=== PATIENT | male | born 1930 | race Caucasian/White ===

== ENCOUNTER 2017-11-27 08:34 | Observation (INO) ==
--- NOTE | 2017-11-27 08:53 | Emergency Department Note ---
Disposition Clinical Impression: Delirium due to general medical condition Syncope Qualifiers: Syncope type: unspecified Qualified Code(s): R55 - Syncope and collapse UTI (urinary tract infection) Qualifiers: Urinary tract infection type: site unspecified Hematuria presence: without hematuria Qualified Code(s): N39.0 - Urinary tract infection, site not specified Disposition: Admitted As Inpatient Condition: Good Time of Disposition: 10:15 (Dr Maldonado) Altered Mental Status HPI - General Chief Complaint: ED Altered Mental Status Stated Complaint: POSSIBLE SYNCOPAL EPISODE Time Seen by Provider: 11/27/17 08:46 Source: EMS, other Mode of arrival: EMS Limitations: altered mental status Nursing Notes Reviewed: Yes Vital Signs Reviewed: Yes - History of Present Illness HPI Narrative: 87-year-old rehabilitation patient coming in secondary to syncope episode at the facility. Per EMS staff the patient apparently was seen eating and upon reevaluation appeared to be slumped and minimally responsive to tactile and verbal stimuli. halfway staff initiated chest compressions on the patient and called EMS for help. Upon EMS arrival the patient was awake but confused, had spontaneous circulation and a blood glucose level in the 120s. The patient has a history of Parkinson's disease as well as recent pacemaker placement secondary to complications of atrial fibrillation. The patient is also on Plavix. 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 MD complaint: altered mental status, confusion Onset (ago): Just [employer] Timing confirmed by: caregiver Treatments prior to arrival: other - Related Data Home Medications Medication Instructions Recorded Confirmed Aspirin [Lo-Dose Aspirin EC] 81 mg PO DAILY 09/14/17 11/27/17 Carbidopa/Levodopa ER 50/200 1 each PO BID 09/14/17 11/27/17 [Sinemet ER 50-200 Tab] Tamsulosin [Flomax] 0.4 mg PO HS 09/14/17 11/27/17 Previous Rx's Medication Instructions Recorded Levothyroxine [Synthroid] 75 mcg PO DAILY@0630 #30 tablet 10/24/17 Atorvastatin [Lipitor] 20 mg PO HS tablet 10/28/17 Clopidogrel [Plavix] 75 mg PO DAILY tablet 10/28/17 Pramipexole [Mirapex] 0.125 mg PO DAILY #30 tablet 10/28/17 Allergies Allergy/AdvReac Type Severity Reaction Status Date / Time No Known Allergies Allergy Verified 09/14/17 12:10 Limitations: ROS unobtainable due to patients medical condition Past Medical History - Past Medical History Medical history: Reports: atrial fibrillation, coronary artery disease, hyperlipidemia, TIA, other Psychiatric history: Reports: no psych history - Social History Smoking Status: Never smoker Smokeless Tobacco Status: No Alcohol use: Reports: none Drug use: Reports: none Physical Exam - General Limitations: altered mental status General appearance: lethargic, other - Head Head exam: atraumatic, normocephalic - Eye Eye exam: Present: normal appearance, PERRL, EOMI. Absent: scleral icterus, conjunctival injection, miosis, mydriasis - ENT ENT exam: normal exam, normal oropharynx, mucous membranes moist - Neck Neck exam: Present: normal inspection, full ROM, trachea midline - Chest Chest inspection: Present: normal inspection, symmetric chest wall rise, other ( Contusion on the mid lower sternal area with no appreciated crepitus. Pacemaker in the left chest wall) - Respiratory Respiratory exam: Present: normal lung sounds bilaterally - Cardiovascular Cardiovascular exam: Present: regular rate, normal rhythm, normal heart sounds - Abdominal Exam Abdominal exam: Present: soft, Non-Tender. Absent: tenderness, distention, guarding, rebound, rigidity - Extremities Exam Extremities exam: Present: full ROM, normal capillary refill, pedal edema. Absent: joint swelling - Expanded Neurological Exam Patient oriented to: Present: person (Responds to his name) Speech: Present: fluid speech Motor strength - LUE: 4/5 Motor strength - RUE: 4/5 Motor strength - LLE: 4/5 Motor strength - RLE: 4/5 Coma Scale Eye Opening: To Voice Coma Scale Motor Response: Obeys Commands Coma Scale Verbal Response: Confused Coma Scale Total: 13 - Skin Skin exam: Present: warm, dry, intact, normal color Course - Reevaluation(s) Reevaluation #1: The patient is more responsive to verbal and tactile stimuli. He is able to answer commands with mild confusion. I discussed with the family the results of the CAT scan and the necessity to admit him to the hospital for observation. They are amenable with current disposition. Time: 10:12 Vital Signs Temperature 97.1 F L 11/27/17 08:37 Pulse Rate 65 11/27/17 08:37 Respiratory Rate 16 11/27/17 08:37 Blood Pressure 128/72 11/27/17 08:37 O2 Sat by Pulse Oximetry 95 11/27/17 08:37 Temperature 97.3 F L 11/27/17 10:36 Pulse Rate 60 11/27/17 10:36 Respiratory Rate 16 11/27/17 10:36 Blood Pressure 170/71 11/27/17 10:36 O2 Sat by Pulse Oximetry 97 11/27/17 10:36 Oxygen Delivery Oxygen Delivery Room Air Altered Mental Status - Differential Diagnosis Likely: altered mental status, delirium, dementia, hypoglycemia, hyponatremia, subarachnoid hemorrhage - Medical Records Medical records reviewed: Yes I reviewed the patient's medical records. - Lab Data Lab results reviewed: Yes I reviewed the patient's lab results. Result diagrams: 11/27/17 09:06 11/27/17 09:06 Lab Results 11/27/17 11/27/17 11/27/17 Range/Units 09:06 09:06 09:06 WBC 9.7 (4.3-11.1) K/mcL RBC 3.50 L (4.19-5.50) M/mcL Hgb 10.3 L (12.9-16.9) g/dL Hct 31.7 L (37.5-50.1) % MCV 90.6 (83.0-100.0) fL MCH 29.4 (28.0-33.3) pg MCHC 32.5 (31.6-35.5) g/dL RDW 14.4 (11.5-14.5) % Plt Count 260 (140-400) K/mcL MPV 10.2 (9.4-12.4) fL Immature Gran % 0.5 (0-4) % Seg Neutrophils % 74.9 % Lymphocytes % 15.6 % Monocytes % 7.4 % Eosinophils % 1.3 % Basophils % 0.3 % Neutrophils # 7.3 (1.6-8.9) K/mcL Lymphocytes # 1.5 (0.6-4.6) K/mcL Monocytes # 0.7 (0.0-1.3) K/mcL Eosinophils # 0.1 (0.0-0.6) K/mcL Basophils # 0.0 (0.0-0.2) K/mcL APTT 28.7 (26.0-36.0) Seconds Sodium 135 L (136-145) mEq/L Potassium 4.1 (3.5-5.1) mEq/L Chloride 105 (98-107) mEq/L Carbon Dioxide 27 (23-29) mEq/L BUN 17 (8-23) mg/dL Creatinine 1.02 (0.70-1.30) mg/dL Est GFR ( Amer) > 60 (> 60) Est GFR (Non-Af Amer) > 60 (> 60) BUN/Creatinine Ratio 17 (6-26) Glucose 113 H (70-105) mg/dL Calculated Osmolality 282 (280-300) Lactic Acid (0.5-2.2) mmol/L Calcium 8.5 L (8.6-10.3) mg/dL Total Bilirubin 0.5 (0.3-1.0) mg/dL Direct Bilirubin 0.0 (0.0-0.2) mg/dL Indirect Bilirubin 0.5 (0.0-1.2) mg/dL AST 11 L (13-39) Units/L ALT < 3 L (7-52) Units/L Alkaline Phosphatase 103 (34-104) Units/L Creatine Kinase (30-223) Units/L Troponin I < 0.03 (< 0.04) ng/mL Serum Total Protein 6.6 (6.4-8.9) g/dL Albumin 3.1 L (3.5-5.7) g/dL Globulin 3.5 (2.4-3.5) g/dL Albumin/Globulin Ratio 0.9 L (1.1-2.2) TSH 1.228 (0.340-5.600) mcIU/mL Urine Color (Yellow) Urine Clarity (Clear) Urine pH (5.0-8.0) pH Units Ur Specific Bruner (1.010-1.025) Urine Protein (Neg-Trace) mg/dL Urine Glucose (UA) (Normal) mg/dL Urine Ketones (Negative) mg/dL Urine Blood (Negative) Urine Nitrite (Negative) Urine Bilirubin (Negative) Urine Urobilinogen (Normal) mg/dL Ur Leukocyte Esterase (Negative) Urine Microscopic RBC (0-3) per hpf Urine Microscopic WBC (0-3) per hpf Ur Squamous Epith Cells (None-Few) per lpf Urine Bacteria (None-Few) per hpf Ur Culture Indicated? (NO) 11/27/17 11/27/17 11/27/17 Range/Units 09:06 09:06 10:20 WBC (4.3-11.1) K/mcL RBC (4.19-5.50) M/mcL Hgb (12.9-16.9) g/dL Hct (37.5-50.1) % MCV (83.0-100.0) fL MCH (28.0-33.3) pg MCHC (31.6-35.5) g/dL RDW (11.5-14.5) % Plt Count (140-400) K/mcL MPV (9.4-12.4) fL Immature Gran % (0-4) % Seg Neutrophils % % Lymphocytes % % Monocytes % % Eosinophils % % Basophils % % Neutrophils # (1.6-8.9) K/mcL Lymphocytes # (0.6-4.6) K/mcL Monocytes # (0.0-1.3) K/mcL Eosinophils # (0.0-0.6) K/mcL Basophils # (0.0-0.2) K/mcL APTT (26.0-36.0) Seconds Sodium (136-145) mEq/L Potassium (3.5-5.1) mEq/L Chloride (98-107) mEq/L Carbon Dioxide (23-29) mEq/L BUN (8-23) mg/dL Creatinine (0.70-1.30) mg/dL Est GFR ( Amer) (> 60) Est GFR (Non-Af Amer) (> 60) BUN/Creatinine Ratio (6-26) Glucose (70-105) mg/dL Calculated Osmolality (280-300) Lactic Acid 1.0 (0.5-2.2) mmol/L Calcium (8.6-10.3) mg/dL Total Bilirubin (0.3-1.0) mg/dL Direct Bilirubin (0.0-0.2) mg/dL Indirect Bilirubin (0.0-1.2) mg/dL AST (13-39) Units/L ALT (7-52) Units/L Alkaline Phosphatase (34-104) Units/L Creatine Kinase 32 (30-223) Units/L Troponin I (< 0.04) ng/mL Serum Total Protein (6.4-8.9) g/dL Albumin (3.5-5.7) g/dL Globulin (2.4-3.5) g/dL Albumin/Globulin Ratio (1.1-2.2) TSH (0.340-5.600) mcIU/mL Urine Color Yellow (Yellow) Urine Clarity Cloudy A (Clear) Urine pH 7.5 (5.0-8.0) pH Units Ur Specific Bruner 1.020 (1.010-1.025) Urine Protein 30 H (Neg-Trace) mg/dL Urine Glucose (UA) Normal (Normal) mg/dL Urine Ketones Negative (Negative) mg/dL Urine Blood Trace-intact H (Negative) Urine Nitrite Positive A (Negative) Urine Bilirubin Negative (Negative) Urine Urobilinogen Normal (Normal) mg/dL Ur Leukocyte Esterase Large H (Negative) Urine Microscopic RBC 5-15 H (0-3) per hpf Urine Microscopic WBC TNTC H (0-3) per hpf Ur Squamous Epith Cells None Seen (None-Few) per lpf Urine Bacteria Few (None-Few) per hpf Ur Culture Indicated? YES A (NO) - Radiology Data Radiology results reviewed: Yes I reviewed the patient's radiology results. Chest X-Ray 11/27/17 08:53 IMPRESSION: Bibasilar airspace disease; however, the aeration of the lungs has improved from one month earlier. D/ /27/2017 09:55:57 Quincy Swanson MD / elan Interpreting Provider: Quincy Swanson MD Head CT 11/27/17 08:53 IMPRESSION: Interval development of a subacute infarct within the left occipital lobe, new from the previous exam from 10/21/2017. No acute intracranial hemorrhage. Findings suggesting acute bilateral maxillary and left frontal sinusitis. D/ /27/2017 09:49:19 Darrion Lin MD / elan Interpreting Provider: Darrion Lin MD - EKG Data EKG attestation: Yes I reviewed and interpreted this EKG. EKG results narrative: Atrial paced rhythm Rate: normal Interpretation: nonspecific ST-T wave changes TPA Checklist - LKW: 3-4.5 hrs Add. Warnings/Precautions Patient/family understanding: The patient/family members have been counseled and understood the risk, benefit , and alternatives of treatment.
[2017-11-27 09:13] LABS: Basophils % 0.3 %; Eosinophils # 0.1 K/mcL (0.0-0.6); Eosinophils % 1.3 %; Hematocrit 31.7 % (37.5-50.1); Hemoglobin 10.3 g/dL (12.9-16.9); Immature Granulocytes % 0.5 % (0-4); Lymphocytes # 1.5 K/mcL (0.6-4.6); Lymphocytes % 15.6 %; Mean Corpuscular HGB Conc 32.5 g/dL (31.6-35.5); Mean Corpuscular Hemoglobin 29.4 pg (28.0-33.3); Mean Corpuscular Volume 90.6 fL (83.0-100.0); Mean Platelet Volume 10.2 fL (9.4-12.4); Monocytes # 0.7 K/mcL (0.0-1.3); Monocytes % 7.4 %; Neutrophils # 7.3 K/mcL (1.6-8.9); Platelet Count 260 K/mcL (140-400); Red Cell Distribution Width 14.4 % (11.5-14.5); Segmented Neutrophils % 74.9 %
[2017-11-27 09:46] LABS: Alanine Aminotransferase < 3 Units/L (7-52); Albumin 3.1 g/dL (3.5-5.7); Albumin/Globulin Ratio 0.9 (1.1-2.2); Alkaline Phosphatase 103 Units/L (34-104); Aspartate Amino Transferase 11 Units/L (13-39); BUN/Creatinine Ratio 17 (6-26); Bilirubin,Indirect 0.5 mg/dL (0.0-1.2); Bilirubin,Total 0.5 mg/dL (0.3-1.0); Blood Urea Nitrogen 17 mg/dL (8-23); Calcium 8.5 mg/dL (8.6-10.3); Carbon Dioxide 27 mEq/L (23-29); Chloride 105 mEq/L (98-107); Globulin 3.5 g/dL (2.4-3.5); Glucose 113 mg/dL (70-105); Osmolality,Calculated 282 (280-300); Potassium 4.1 mEq/L (3.5-5.1); Sodium 135 mEq/L (136-145); Thyroid Stimulating Hormone 1.228 mcIU/mL (0.340-5.600); Total Protein 6.6 g/dL (6.4-8.9); Troponin I < 0.03 ng/mL (< 0.04); eGFR For African Americans > 60 (> 60); eGFR For Non-African Americans > 60 (> 60)
[2017-11-27 10:25] LABS: Bilirubin,Urine Negative (Negative); Blood,Urine Trace-intact (Negative); Clarity,Urine Cloudy (Clear); Color,Urine Yellow (Yellow); Glucose,Urine (UA) Normal (Normal); Ketones,Urine Negative (Negative); Leukocyte Esterase,Urine Large (Negative); Nitrite,Urine Positive (Negative); PH,Urine 7.5 pH Units (5.0-8.0); Protein,Urine 30 mg/dL (Neg-Trace); Urobilinogen,Urine Normal (Normal)
[2017-11-27 10:42] LABS: Bacteria,Urine Few per hpf (None-Few); Squamous Epithelial Cell,Urine None Seen per lpf (None-Few); WBC,Urine TNTC per hpf (0-3)
[2017-11-27] MEDS ORDERED: Ondansetron 4 MG/2 ML VIAL IVP PRN (11:08)
[2017-11-27] MEDS ORDERED: Acetaminophen 325 MG TABLET PO PRN (11:08)
[2017-11-27] MEDS ORDERED: Naloxone 0.4 MG/ML INJ IVP PRN (11:08)
[2017-11-27] MEDS ORDERED: *HR* OxyCODONE Immed Rel 5 MG TABLET PO PRN (11:08)
[2017-11-27] MEDS ORDERED: cefTRIAXone 1,000 MG in Water for inj. (sterile) 10 ML IVPB SCH (12:00)
--- NOTE | 2017-11-27 13:54 | Internal Med History&Physical ---
Date of Encounter: 11/27/17 Time of Encounter: 13:20 Assessment and Plan (1) Syncope Current visit: No Status: Acute Etiology not obvious. He will be placed on radiation monitor. Orthostatic vital signs will be checked. Further workup will be done as needed. Qualifiers: Syncope type: unspecified Qualified Code(s): R55 - Syncope and collapse (2) TIA (transient ischemic attack) Current visit: No Status: Acute Continue aspirin and Plavix. Qualifiers: Transient cerebral ischemia type: unspecified Qualified Code(s): G45.9 - Transient cerebral ischemic attack, unspecified (3) Hypothyroidism Current visit: No Status: Acute TSH was normal in emergency room. Continue present dose Synthroid. Qualifiers: Hypothyroidism type: acquired Qualified Code(s): E03.9 - Hypothyroidism, unspecified (4) Parkinson disease Current visit: No Status: Chronic Continue Sinemet and Mirapex (5) Atrial fibrillation Current visit: No Status: Acute Oral anticoagulation has been held because of hematuria. Continue aspirin and Plavix. Qualifiers: Atrial fibrillation type: paroxysmal Qualified Code(s): I48.0 - Paroxysmal atrial fibrillation (6) UTI (urinary tract infection) Current visit: Yes Status: Acute Rocephin was given in emergency room. We will continue this with lactobacillus. Qualifiers: Urinary tract infection type: site unspecified Hematuria presence: without hematuria Qualified Code(s): N39.0 - Urinary tract infection, site not specified (7) Anemia Current visit: Yes Status: Chronic We will order anemia testing in a.m. Qualifiers: Anemia type: unspecified type Qualified Code(s): D64.9 - Anemia, unspecified Internal Medicine - H&P: HPI Chief complaint: Syncope Admitted From: Emergency Dept Plans for Post Hospital Care: Transfer Nursing Home Facility History of present illness: Mr. Cloud is a 87 year old male who was brought to emergency room after he had a syncopal episode while sitting at breakfast table at a local SNF. There was no seizure activity reported. He regained consciousness after a short time and was transported to emergency room. Evaluation included CT scan of head which showed subacute left occipital infarct new since October 2017 CT. He had anemia and evidence of UTI. He was admitted to [facility] floor for ongoing care needs. He had a dual-chamber pacemaker placed October 2017 at [facility] for symptomatically bradycardia. He has had syncope/collapse at the SNF since that [facility] stay while participating in therapy walking down the [place]. He has chronic atrial fibrillation. He has known ASHD with a single stent placed and 2002. There is no history of hypertension, NM, DVT or pulmonary embolus. He is not on OAC at this time because of recent hematuria. He is on aspirin and Plavix. Past Med Surg Social Fam HX - Past Medical History Medical history: atrial fibrillation, coronary artery disease, hyperlipidemia, TIA, other Psychiatric history: no psych history - Social History Smoking Status: Never smoker Smokeless Tobacco Status: No Alcohol use: none Drug use: none Internal Medicine - H&P: Meds Aspirin [Lo-Dose Aspirin EC] 81 mg PO DAILY 09/14/17 [History] Carbidopa/Levodopa ER 50/200 [Sinemet ER 50-200 Tab] 1 each PO BID 09/14/17 [ History] Tamsulosin [Flomax] 0.4 mg PO HS 09/14/17 [History] Levothyroxine [Synthroid] 75 mcg PO DAILY@0630 #30 tablet 10/24/17 [Rx] Atorvastatin [Lipitor] 20 mg PO HS tablet 10/28/17 [Rx] Clopidogrel [Plavix] 75 mg PO DAILY tablet 10/28/17 [Rx] Pramipexole [Mirapex] 0.125 mg PO DAILY #30 tablet 10/28/17 [Rx] 3 Allergy/AdvReac Type Severity Reaction Status Date / Time No Known Allergies Allergy Verified 09/14/17 12:10 All Systems PM: A 10-system review of systems was performed and is negative for pertinent findings except as documented above in the HPI. Review of systems: Gen.: His weight has decreased approximately 20 pounds in the past 3 months. His daughter feels this is secondary to loss of edema fluid. Cardiovascular: As per history of present illness Respiratory: He is a lifelong nonsmoker and has no known chronic lung disease GI: Denies disorders of his liver gallbladder or exocrine pancreas : He has BPH. He denies other kidney or bladder disorders except for recent hematuria. He has not had a UTI in many years. Neurologic: He had TIA August 2017 with some speech disturbance which has returned to baseline. He was placed on antiplatelet agents. He was diagnosed with Parkinson's disease approximately 2012. He denies large distribution strokes or known seizures. 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 Endocrine: He denies diabetes but has hypothyroidism and hyperlipidemia Hematology/oncology: He has chronic anemia but was unaware of this. He denies internal malignancies other blood disorders Psychiatric: He has expressed feelings of depression and stated he did not want medication for this. He mental health diagnoses [place] skeletal: He has no significant arthritis scatter other bone joint or muscle disorders. - Constitutional Vitals: Temp Pulse Resp BP Pulse Ox 96.2 F L 62 20 190/79 100 11/27/17 11:21 11/27/17 11:21 11/27/17 11:21 11/27/17 11:21 11/27/17 11:21 Exam: Gen.: He is a well-developed well-nourished male lying quietly in bed who appears in no severe distress at present time HEENT: Head is atraumatic and normocephalic. Eyes: Has a prosthetic left eye. The right eye shows no scleral icterus. Mouth: Mucosa is moist. Neck: Supple and nontender. There is no thyromegaly or adenopathy noted. Heart: Regular without murmurs gallops or ectopics Lungs: No wheezes or crackles are heard. Abdomen: Soft and nontender. No masses or guarding are noted. Extremities: There is no cyanosis edema or clubbing noted. Dorsalis pedis and posterior tibial pulses are trace palpable bilaterally. Neurologic: Mental status: He is talkative and fair to good historian. Cranial nerves: Smile is symmetric. Forehead wrinkles bilaterally. Tongue protrudes midline. EOMI. (Right eye). There is some right visual field deficit present. Motor: There is no pronator drift. Cerebellar: Finger to nose is intact bilaterally. Skin: Warm and dry Internal Med - H&P Results - Labs CBC & Chem 7: 11/27/17 09:06 11/27/17 09:06
[2017-11-27] MEDS: cefTRIAXone 1,000 MG in Water for inj. (sterile) 10 ML IVPB SCH (15:08)
[2017-11-27] MEDS: Lactobacillus 1 EACH CAP.SPRINK PO SCH (20:04)
[2017-11-27] MEDS: Carbidopa/Levodopa ER 50/200 TABLET PO SCH (20:04)
[2017-11-28 05:58] LABS: Basophils % 0.5 %; Eosinophils # 0.1 K/mcL (0.0-0.6); Eosinophils % 1.7 %; Hematocrit 29.9 % (37.5-50.1); Hemoglobin 9.7 g/dL (12.9-16.9); Immature Granulocytes % 0.7 % (0-4); Lymphocytes # 1.7 K/mcL (0.6-4.6); Lymphocytes % 20.1 %; Mean Corpuscular HGB Conc 32.4 g/dL (31.6-35.5); Mean Corpuscular Hemoglobin 29.3 pg (28.0-33.3); Mean Corpuscular Volume 90.3 fL (83.0-100.0); Mean Platelet Volume 10.4 fL (9.4-12.4); Monocytes # 0.8 K/mcL (0.0-1.3); Monocytes % 9.3 %; Neutrophils # 5.6 K/mcL (1.6-8.9); Platelet Count 263 K/mcL (140-400); Red Blood Count 3.31 M/mcL (4.19-5.50); Red Cell Distribution Width 14.6 % (11.5-14.5); Segmented Neutrophils % 67.7 %
[2017-11-28 06:18] LABS: BUN/Creatinine Ratio 18 (6-26); Blood Urea Nitrogen 19 mg/dL (8-23); Calcium 8.5 mg/dL (8.6-10.3); Carbon Dioxide 26 mEq/L (23-29); Chloride 105 mEq/L (98-107); Glucose 99 mg/dL (70-105); Osmolality,Calculated 288 (280-300); Potassium 4.2 mEq/L (3.5-5.1); Sodium 138 mEq/L (136-145); eGFR For African Americans > 60 (> 60); eGFR For Non-African Americans > 60 (> 60)
[2017-11-28] MEDS: Aspirin Enteric Coated 81 MG Tablet PO SCH (08:20)
[2017-11-28] MEDS: Lactobacillus 1 EACH CAP.SPRINK PO SCH ×2 (08:20→21:36)
[2017-11-28] MEDS: Carbidopa/Levodopa ER 50/200 TABLET PO SCH ×2 (08:21→21:36)
[2017-11-28] MEDS: Finasteride 5 MG TABLET PO SCH (08:21)
[2017-11-28 08:56] LABS: % Iron Saturation 17 % (20-55); Ferritin 66 ng/ml (20-250); Iron 50 mcg/dL (65-175); Transferrin 205 mg/dL (203-362)
[2017-11-28 09:21] LABS: Folate 14.8 ng/mL (3.0-16.0)
--- NOTE | 2017-11-28 10:15 | Internal Med Progress Note ---
Date of Encounter: 11/28/17 Time of Encounter: 10:00 - Assessment and plan (1) Syncope Current Visit: No Status: Acute Assessment and plan: November 28. Likely due to autonomic insufficiency. Will increase Mirapex, use thigh-high DAYANNA hose, and start Florinef. Qualifiers: Syncope type: unspecified Qualified Code(s): R55 - Syncope and collapse (2) TIA (transient ischemic attack) Current Visit: No Status: Acute Assessment and plan: November 28. Continue Plavix and aspirin Qualifiers: Transient cerebral ischemia type: unspecified Qualified Code(s): G45.9 - Transient cerebral ischemic attack, unspecified (3) Hypothyroidism Current Visit: No Status: Acute Assessment and plan: November 28. Continue Synthroid Qualifiers: Hypothyroidism type: acquired Qualified Code(s): E03.9 - Hypothyroidism, unspecified (4) Parkinson disease Current Visit: No Status: Chronic Assessment and plan: November 28. Continue Sinemet. Will increase Mirapex. (5) Atrial fibrillation Current Visit: No Status: Acute Assessment and plan: November 28. Continue aspirin and Plavix. Possibly restart oral anticoagulation in the future Qualifiers: Atrial fibrillation type: paroxysmal Qualified Code(s): I48.0 - Paroxysmal atrial fibrillation (6) UTI (urinary tract infection) Current Visit: Yes Status: Acute Assessment and plan: November 28. Continue Rocephin and lactobacillus. Qualifiers: Urinary tract infection type: site unspecified Hematuria presence: without hematuria Qualified Code(s): N39.0 - Urinary tract infection, site not specified (7) Anemia Current Visit: Yes Status: Chronic Assessment and plan: November 28. Anemia testing showed no factor deficiency. Suspect due to aspirin and Plavix use. Qualifiers: Anemia type: unspecified type Qualified Code(s): D64.9 - Anemia, unspecified - Subjective Interval history: November 28. He has no new complaints. He had near syncopal episode while sitting in a chair today. - Constitutional Vitals: Temp Pulse Resp BP Pulse Ox 98.2 F 62 16 95/57 100 11/28/17 08:12 11/28/17 08:12 11/28/17 08:12 11/28/17 08:12 11/28/17 08:12 Exam: He is lying in bed resting comfortable. His affect is bright and cheerful. I reviewed his medications and lab results and orthostatic vital signs. I discussed with family at some length his condition and prognosis. Internal Medicine: Result - Labs CBC & Chem 7: 11/28/17 05:20 11/28/17 05:20 Labs: Short CBC 11/28/17 Range/Units 05:20 WBC 8.3 (4.3-11.1) K/mcL Hgb 9.7 L (12.9-16.9) g/dL Hct 29.9 L (37.5-50.1) % Plt Count 263 (140-400) K/mcL Neutrophils # 5.6 (1.6-8.9) K/mcL BMP 11/28/17 05:20 Sodium 138 Potassium 4.2 Chloride 105 Carbon Dioxide 26 BUN 19 Creatinine 1.06 Glucose 99 Calcium 8.5 L Consult Discharge Plan - Plan Referrals: Tate Go DO [Primary Care Provider] - 1 week
[2017-11-28] MEDS ORDERED: cefTRIAXone 1,000 MG in Water for inj. (sterile) 10 ML IVPB SCH (12:00)
[2017-11-28] MEDS: cefTRIAXone 1,000 MG in Water for inj. (sterile) 10 ML IVPB SCH (14:41)
[2017-11-28] MEDS: 0.45 % Sodium Chloride w/KCl 20 MEQ/1,000 ML MLS IVC SCH (19:00)
--- NOTE | 2017-11-28 19:58 | Electrocardiograph Report ---
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
[2017-11-29] MEDS: 0.45 % Sodium Chloride w/KCl 20 MEQ/1,000 ML MLS IVC SCH ×2 (07:36→19:58)
[2017-11-29] MEDS: Carbidopa/Levodopa ER 50/200 TABLET PO SCH ×2 (08:56→19:59)
[2017-11-29] MEDS: Finasteride 5 MG TABLET PO SCH (08:56)
[2017-11-29] MEDS: Lactobacillus 1 EACH CAP.SPRINK PO SCH ×2 (08:56→19:59)
[2017-11-29] MEDS: Aspirin Enteric Coated 81 MG Tablet PO SCH (08:56)
--- NOTE | 2017-11-29 11:39 | Internal Med Progress Note ---
Date of Encounter: 11/29/17 Time of Encounter: 11:30 - Assessment and plan (1) Syncope Current Visit: No Status: Acute Assessment and plan: November 29. Likely due to autonomic insufficiency. Will continue higher dose Mirapex, use thigh-high DAYANNA hose, and continue Florinef. Qualifiers: Syncope type: unspecified Qualified Code(s): R55 - Syncope and collapse (2) TIA (transient ischemic attack) Current Visit: No Status: Acute Assessment and plan: November 29. Continue Plavix and aspirin Qualifiers: Transient cerebral ischemia type: unspecified Qualified Code(s): G45.9 - Transient cerebral ischemic attack, unspecified (3) Hypothyroidism Current Visit: No Status: Acute Assessment and plan: November 29. Continue Synthroid Qualifiers: Hypothyroidism type: acquired Qualified Code(s): E03.9 - Hypothyroidism, unspecified (4) Parkinson disease Current Visit: No Status: Chronic Assessment and plan: November 29. Continue Sinemet and Mirapex. (5) Atrial fibrillation Current Visit: No Status: Acute Assessment and plan: November 29. Continue aspirin and Plavix. Possibly restart oral anticoagulation in the future. Qualifiers: Atrial fibrillation type: paroxysmal Qualified Code(s): I48.0 - Paroxysmal atrial fibrillation (6) UTI (urinary tract infection) Current Visit: Yes Status: Acute Assessment and plan: November 29. Continue Rocephin and lactobacillus. Qualifiers: Urinary tract infection type: site unspecified Hematuria presence: without hematuria Qualified Code(s): N39.0 - Urinary tract infection, site not specified (7) Anemia Current Visit: Yes Status: Chronic Assessment and plan: November 29. Anemia testing showed no factor deficiency. Suspect due to aspirin and Plavix. Qualifiers: Anemia type: unspecified type Qualified Code(s): D64.9 - Anemia, unspecified - Subjective Interval history: November 28. He has no new complaints. He had near syncopal episode while sitting in a chair today. November 29. He has no new complaints. He has had no more syncope or near syncopal episodes. - Constitutional Vitals: Temp Pulse Resp BP Pulse Ox 98.3 F 61 18 162/70 95 11/29/17 04:43 11/29/17 04:43 11/29/17 04:43 11/29/17 04:43 11/29/17 04:43 Exam: He is resting comfortably in bed and appears in no acute distress. His affect is cheerful. I reviewed his medications and lab results. Internal Medicine: Result - Labs CBC & Chem 7: 11/28/17 05:20 11/28/17 05:20 Consult Discharge Plan - Plan Referrals: Tate Go DO [Primary Care Provider] - 1 week
[2017-11-29] MEDS: cefTRIAXone 1,000 MG in Water for inj. (sterile) 10 ML IVPB SCH (15:55)
[2017-11-30 06:48] VITALS: BP 186/74
[2017-11-30] MEDS: Lactobacillus 1 EACH CAP.SPRINK PO SCH (08:30)
[2017-11-30] MEDS: Aspirin Enteric Coated 81 MG Tablet PO SCH (08:30)
[2017-11-30] MEDS: 0.45 % Sodium Chloride w/KCl 20 MEQ/1,000 ML MLS IVC SCH (08:31)
[2017-11-30] MEDS: Carbidopa/Levodopa ER 50/200 TABLET PO SCH (08:31)
[2017-11-30] MEDS: Finasteride 5 MG TABLET PO SCH (08:31)
--- NOTE | 2017-11-30 11:36 | Internal Med Progress Note ---
Date of Encounter: 11/30/17 Time of Encounter: 10:25 - Assessment and plan (1) Syncope Current Visit: No Status: Acute Assessment and plan: November 29. Likely due to autonomic insufficiency. Will continue higher dose Mirapex, use thigh-high DAYANNA hose, and continue Florinef. November 30. Continue present regimen. Recheck orthostatic vital signs in a.m. Qualifiers: Syncope type: unspecified Qualified Code(s): R55 - Syncope and collapse (2) TIA (transient ischemic attack) Current Visit: No Status: Acute Assessment and plan: November 29. Continue Plavix and aspirin Qualifiers: Transient cerebral ischemia type: unspecified Qualified Code(s): G45.9 - Transient cerebral ischemic attack, unspecified (3) Hypothyroidism Current Visit: No Status: Acute Assessment and plan: November 29. Continue Synthroid Qualifiers: Hypothyroidism type: acquired Qualified Code(s): E03.9 - Hypothyroidism, unspecified (4) Parkinson disease Current Visit: No Status: Chronic Assessment and plan: November 29. Continue Sinemet and Mirapex. (5) Atrial fibrillation Current Visit: No Status: Acute Assessment and plan: November 29. Continue aspirin and Plavix. Possibly restart oral anticoagulation in the future. Qualifiers: Atrial fibrillation type: paroxysmal Qualified Code(s): I48.0 - Paroxysmal atrial fibrillation (6) UTI (urinary tract infection) Current Visit: Yes Status: Acute Assessment and plan: November 29. Continue Rocephin and lactobacillus. Qualifiers: Urinary tract infection type: site unspecified Hematuria presence: without hematuria Qualified Code(s): N39.0 - Urinary tract infection, site not specified (7) Anemia Current Visit: Yes Status: Chronic Assessment and plan: November 29. Anemia testing showed no factor deficiency. Suspect due to aspirin and Plavix. November 30. Hemoglobin decreased yesterday. We will recheck in a.m. Will start ferrous sulfate and vitamin C orally. Qualifiers: Anemia type: unspecified type Qualified Code(s): D64.9 - Anemia, unspecified - Subjective Interval history: November 28. He has no new complaints. He had near syncopal episode while sitting in a chair today. November 29. He has no new complaints. He has had no more syncope or near syncopal episodes. November 30. He has no new complaints and feels better. - Constitutional Vitals: Temp Pulse Resp BP Pulse Ox 97.3 F L 59 20 186/74 95 11/30/17 06:46 11/30/17 06:46 11/30/17 06:46 11/30/17 06:46 11/30/17 06:46 Exam: He is resting comfortably in bed and appears in no acute distress. His affect is bright and cheerful. I reviewed his medications and lab results. Internal Medicine: Result - Labs CBC & Chem 7: 11/28/17 05:20 11/28/17 05:20 Consult Discharge Plan - Plan Referrals: Tate Go DO [Primary Care Provider] - 1 week
[2017-11-30] MEDS: cefTRIAXone 1,000 MG in Water for inj. (sterile) 10 ML IVPB SCH (15:51)
--- NOTE | 2017-11-30 16:45 | Discharge Summary ---
Orders not resulted at time of discharge: Pending orders 12/01/17 04:00 Complete Blood Count [HEME] AM 0400 Date of Encounter: 11/30/17 Time of Encounter: 16:30 - Discharge Diagnosis (1) Syncope Priority: Primary Status: Acute Qualifiers: Syncope type: unspecified Qualified Code(s): R55 - Syncope and collapse (2) TIA (transient ischemic attack) Priority: Secondary Status: Acute Qualifiers: Transient cerebral ischemia type: unspecified Qualified Code(s): G45.9 - Transient cerebral ischemic attack, unspecified (3) Hypothyroidism Priority: Secondary Status: Acute Qualifiers: Hypothyroidism type: acquired Qualified Code(s): E03.9 - Hypothyroidism, unspecified (4) Parkinson disease Priority: Secondary Status: Chronic (5) Atrial fibrillation Priority: Secondary Status: Acute Qualifiers: Atrial fibrillation type: paroxysmal Qualified Code(s): I48.0 - Paroxysmal atrial fibrillation (6) UTI (urinary tract infection) Priority: Secondary Status: Acute Qualifiers: Urinary tract infection type: site unspecified Hematuria presence: without hematuria Qualified Code(s): N39.0 - Urinary tract infection, site not specified (7) Anemia Priority: Secondary Status: Chronic Qualifiers: Anemia type: unspecified type Qualified Code(s): D64.9 - Anemia, unspecified Hospital course: Mr. Cloud is a 87 year old male who was brought to emergency room after he had a syncopal episode while sitting at breakfast table at a local SNF. There was no seizure activity reported. He regained consciousness after a short time and was transported to emergency room. Evaluation included CT scan of head which showed subacute left occipital infarct new since October 2017 CT. He had anemia and evidence of UTI. He was admitted to [facility] for ongoing care needs. Initial orders were written by the emergency room physician. I saw him on November 27 and performed a history and physical. Orthostatic vital signs showed 50 mm blood pressure drop from lying to standing. I felt he likely had autonomic dysfunction. He was started on Florinef and ordered thigh-high DAYANNA hose. Mirapex dose was increased. He had no further syncopal or near syncopal episodes. He will remain on this regimen at discharge. He had urinary retention requiring Ness catheter insertion. Ness will be discontinued on December 01. No visible hematuria was present in the collection bag at time of discharge. He was given higher dose Flomax and started on Proscar for BPH. Rocephin was started empirically in emergency room for possible UTI. Urine culture report showed Proteus mirabilis and another gram-negative mary anne. He remained afebrile during his hospital stay. He will continue with antibiotics for one additional day after discharge. Anemia testing showed iron 50, transferrin saturation 70%, transferrin 205, ferritin 66, B12 713, and folate 14.8. He will be given a trial of ferrous sulfate with vitamin C. On November 30 word was received from insurance that he was approved to returned to [facility] for rehabilitation therapy. He will follow with Dr. Villatoro. - Time Spent with Patient Total time spent providing and/or coordinating discharge services: - Discharge Medications Prescriptions: Cefuroxime PO [Ceftin] 500 mg PO Q12HR 1 Days tablet Lactobacillus [Culturelle] 1 each PO BID 1 Days cap.sprink Home Medications: Aspirin [Lo-Dose Aspirin EC] 81 mg PO DAILY 09/14/17 [History] Carbidopa/Levodopa ER 50/200 [Sinemet ER 50-200 Tab] 1 each PO BID 09/14/17 [ History] Levothyroxine [Synthroid] 75 mcg PO DAILY@0630 #30 tablet 10/24/17 [Rx] Atorvastatin [Lipitor] 20 mg PO HS tablet 10/28/17 [Rx] Clopidogrel [Plavix] 75 mg PO DAILY tablet 10/28/17 [Rx] Ascorbic Acid [Vitamin C] 500 mg PO 0630 tablet 11/30/17 [Rx] Cefuroxime PO [Ceftin] 500 mg PO Q12HR 1 Days tablet 11/30/17 [Rx] Ferrous Sulfate 325 mg PO 0630 tablet 11/30/17 [Rx] Finasteride [Proscar] 5 mg PO DAILY tablet 11/30/17 [Rx] Fludrocortisone Acetate [Florinef] 0.1 mg PO DAILY tablet 11/30/17 [Rx] Lactobacillus [Culturelle] 1 each PO BID 1 Days cap.sprink 11/30/17 [Rx] Pramipexole [Mirapex] 0.25 mg PO DAILY 365 Days tablet 11/30/17 [Rx] Tamsulosin [Flomax] 0.8 mg PO HS #0 11/30/17 [Rx] Allergies/Adverse Reactions: 3 Allergy/AdvReac Type Severity Reaction Status Date / Time No Known Allergies Allergy Verified 09/14/17 12:10 Date of admission: 11/27/17 10:59 Primary care physician: Darell Villatoro M.D. Consults: 11/27/17 20:27 Consult to Professional P[employer] [CONS] Routine Reason for SW Consult: D/C planning -pt was at [facility] out of days 11/24/17 - got 3 free days putting 11/27/17 as date of D/C - pt needs services/placement 11/28/17 10:33 Consult to Occupational Therapy [CONS] Routine Comment: Evaluate, develop and implement POC Reason for Consult: weakness,syncope Does patient have active BEDREST order?: No Is patient medically & hemodynamically stable?: Yes Patient assessed for mobility or mobilized this visit?: Yes Consult to Physical Therapy [CONS] Routine Comment: Evaluate, develop and implement POC Reason for Consult: weakness Does patient have active BEDREST order?: No Is patient medically & hemodynamically stable?: Yes Patient assessed for mobility or mobilized this visit?: Yes - Constitutional Vitals: Temp Pulse Resp BP Pulse Ox 97.3 F L 59 20 186/74 95 11/30/17 06:46 11/30/17 06:46 11/30/17 06:46 11/30/17 06:46 11/30/17 06:46 - Patient Status Disposition: Transfer SNF Condition: Good Functional capacity at discharge: uses cane/walker Overall status at discharge: patient is progressing back to baseline - Discharge Instructions - Diet and Activity Activity: as per physical therapy Diet: advance to your usual diet
--- NOTE | 2017-11-30 16:54 | Physician Discharge Referral ---
ExtendedCare Referral Info Transfer To: [facility] Provider in Charge: Joel Provider in Charge after Transfer: PCP Lana) - Diagnosis (1) Syncope Priority: Primary Status: Acute (2) TIA (transient ischemic attack) Priority: Secondary Status: Acute (3) Hypothyroidism Priority: Secondary Status: Acute (4) Parkinson disease Priority: Secondary Status: Chronic (5) Atrial fibrillation Priority: Secondary Status: Acute (6) UTI (urinary tract infection) Priority: Secondary Status: Acute (7) Anemia Priority: Secondary Status: Chronic Prognosis: Fair Aware of Diagnosis: Patient, Family Aware of Prognosis: Patient, Family - Transfer Medications Prescriptions: Cefuroxime PO [Ceftin] 500 mg PO Q12HR 1 Days tablet Lactobacillus [Culturelle] 1 each PO BID 1 Days cap.sprink Home Medications: Aspirin [Lo-Dose Aspirin EC] 81 mg PO DAILY 09/14/17 [History] Carbidopa/Levodopa ER 50/200 [Sinemet ER 50-200 Tab] 1 each PO BID 09/14/17 [ History] Levothyroxine [Synthroid] 75 mcg PO DAILY@0630 #30 tablet 10/24/17 [Rx] Atorvastatin [Lipitor] 20 mg PO HS tablet 10/28/17 [Rx] Clopidogrel [Plavix] 75 mg PO DAILY tablet 10/28/17 [Rx] Ascorbic Acid [Vitamin C] 500 mg PO 0630 tablet 11/30/17 [Rx] Cefuroxime PO [Ceftin] 500 mg PO Q12HR 1 Days tablet 11/30/17 [Rx] Ferrous Sulfate 325 mg PO 0630 tablet 11/30/17 [Rx] Finasteride [Proscar] 5 mg PO DAILY tablet 11/30/17 [Rx] Fludrocortisone Acetate [Florinef] 0.1 mg PO DAILY tablet 11/30/17 [Rx] Lactobacillus [Culturelle] 1 each PO BID 1 Days cap.sprink 11/30/17 [Rx] Pramipexole [Mirapex] 0.25 mg PO DAILY 365 Days tablet 11/30/17 [Rx] Tamsulosin [Flomax] 0.8 mg PO HS #0 11/30/17 [Rx] Allergies/Adverse Reactions: 3 Allergy/AdvReac Type Severity Reaction Status Date / Time No Known Allergies Allergy Verified 09/14/17 12:10 - Respiratory Orders Smoking Cessation: Smoking cessation has been advised. For more information, call the [place] Tobacco Quit Line at 5-628-LSCL-NOW. - Lab Orders Lab Orders: Other (include drug levels w/frequency) (CBC with differential, BMP in 1 week) - Rehabiliation Orders Rehab Potential: Fair Rehab Orders: Evaluation for Physical Therapy, Evaluation for Occupational Therapy - Treatments List/Other: Remove Ness catheter 12/01/2017. - Diet Orders Regular CERTIFICATION: I certify that the transfer of the above named patient to an Extended Care Facility is necessary for the continuing treatment of the diagnosis listed. The above information is true and accurate reflection of patient's current condition. Confidential - Redisclosure prohibited without a patient's written consent.
[2017-12-01] MEDS ORDERED: Ascorbic Acid 500 MG TABLET PO SCH (06:30)
== END 2017-11-30 18:11 ==
LOC: INPPIK 08:34 → EMEROOPIK 08:34 → INPPIK 10:54
PROVIDERS: ADMIT Internal Medicine; ATTEND Internal Medicine

== ENCOUNTER 2017-12-25 12:16 | Observation (INO) ==
--- NOTE | 2017-12-25 12:25 | Emergency Department Note ---
Disposition Clinical Impression: Syncope and collapse Disposition: Admitted As Inpatient Condition: Fair Time of Disposition: 14:00 (Dr Maldonado) Altered Mental Status HPI - General Chief Complaint: ED General Medical Stated Complaint: syncopal episode earlier today Time Seen by Provider: 12/25/17 12:23 Source: EMS Mode of arrival: EMS Limitations: altered mental status Nursing Notes Reviewed: Yes Vital Signs Reviewed: Yes - History of Present Illness HPI Narrative: Patient had a syncopal episode around 9:30 AM today. He has persistent confusion with weakness on the left upper extremity with some slurring of his speech according to EMS and family. The patient has been seen in the past for similar complaints. 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 MD complaint: confusion Timing confirmed by: family member Pain Severity: none Consistency of Symptoms: unknown Context: history of similar presentation Associated symptoms: Reports: syncope. Denies: chest pain, nausea/vomiting, weakness - Related Data Home Medications Medication Instructions Recorded Confirmed Aspirin [Lo-Dose Aspirin EC] 81 mg PO DAILY 09/14/17 12/25/17 Carbidopa/Levodopa ER 50/200 1 each PO BID 09/14/17 12/25/17 [Sinemet ER 50-200 Tab] Acetaminophen [Non-Aspirin] 650 mg PO PRN PRN 12/25/17 12/25/17 Ferrous Sulfate 325 mg PO DAILY 12/25/17 12/25/17 Rivaroxaban [Xarelto] 15 mg PO DAILY 12/25/17 12/25/17 Previous Rx's Medication Instructions Recorded Levothyroxine [Synthroid] 75 mcg PO DAILY@0630 #30 tablet 10/24/17 Atorvastatin [Lipitor] 20 mg PO HS tablet 10/28/17 Clopidogrel [Plavix] 75 mg PO DAILY tablet 10/28/17 Ascorbic Acid [Vitamin C] 500 mg PO 0630 tablet 11/30/17 Finasteride [Proscar] 5 mg PO DAILY tablet 11/30/17 Fludrocortisone Acetate [Florinef] 0.1 mg PO DAILY tablet 11/30/17 Pramipexole [Mirapex] 0.25 mg PO DAILY 365 Days tablet 11/30/17 Tamsulosin [Flomax] 0.8 mg PO HS #0 11/30/17 Lactobacillus [Culturelle] 1 each PO BID #10 cap.sprink 12/14/17 Allergies Allergy/AdvReac Type Severity Reaction Status Date / Time No Known Allergies Allergy Verified 12/14/17 13:07 Limitations: ROS unobtainable due to patients medical condition Past Medical History - Past Medical History Medical history: Reports: atrial fibrillation, hyperlipidemia, other, TIA, coronary artery disease Psychiatric history: Reports: no psych history - Social History Smoking Status: Never smoker Smokeless Tobacco Status: No Alcohol use: Reports: none Drug use: Reports: none Physical Exam - General Limitations: altered mental status General appearance: alert, in no apparent distress - Head Head exam: atraumatic, normocephalic, normal inspection - Eye Eye exam: Present: PERRL (Right eye). Absent: scleral icterus, conjunctival injection, nystagmus, miosis, mydriasis, periorbital swelling - ENT ENT exam: normal exam, normal oropharynx, mucous membranes moist - Neck Neck exam: Present: normal inspection, full ROM, trachea midline - Chest Chest inspection: Present: normal inspection, symmetric chest wall rise - Respiratory Respiratory exam: Present: normal lung sounds bilaterally - Cardiovascular Cardiovascular exam: Present: regular rate, normal rhythm, normal heart sounds - Abdominal Exam Abdominal exam: Present: soft, Non-Tender. Absent: tenderness, distention, guarding, rebound, rigidity - Extremities Exam Extremities exam: Present: normal inspection, full ROM. Absent: tenderness, pedal edema - Back Exam Back exam: Present: normal inspection, full ROM. Absent: tenderness - Expanded Neurological Exam Patient oriented to: Present: person Speech: Present: fluid speech Motor strength - LUE: 5/5 Motor strength - RUE: 5/5 Motor strength - LLE: 5/5 Motor strength - RLE: 5/5 Sensory exam upper extremity: light touch: Normal Sensory exam lower extremity: light touch: Normal Coma Scale Eye Opening: Spontaneous Coma Scale Motor Response: Obeys Commands Coma Scale Verbal Response: Confused Coma Scale Total: 14 - Skin Skin exam: Present: warm, dry, intact, normal color Course Vital Signs Temperature 97.0 F L 12/25/17 12:19 Pulse Rate 68 12/25/17 12:19 Respiratory Rate 16 12/25/17 12:19 Blood Pressure 183/79 12/25/17 12:19 O2 Sat by Pulse Oximetry 98 12/25/17 12:19 Temperature 97.0 F L 12/25/17 13:27 Pulse Rate 60 12/25/17 15:00 Respiratory Rate 16 12/25/17 15:00 Blood Pressure 190/77 12/25/17 15:00 O2 Sat by Pulse Oximetry 99 12/25/17 15:00 Oxygen Delivery Oxygen Delivery Room Air Altered Mental Status - MDM Narrative Medical decision making narrative: Stable hemodynamically in the ED. The patient's blood pressure was stable throughout the ED course. She is mentation gradually improved on reevaluation. I did speak to the patient's PCP at the assisted living and would like to admit the patient for observation secondary to his delirium. Throughout the ED course he gradually improve with no clear signs for any acute focal neurological deficits. Patient does have a history of similar complaints the past and has slow mentation improvement after syncopal episodes. - Differential Diagnosis Likely: altered mental status, delirium, dementia, hypoglycemia, hyponatremia, psychiatric disease, subarachnoid hemorrhage - Medical Records Medical records reviewed: Yes I reviewed the patient's medical records. - Lab Data Lab results reviewed: Yes I reviewed the patient's lab results. Result diagrams: 12/25/17 12:59 12/25/17 12:59 Lab Results 12/25/17 12/25/17 12/25/17 Range/Units 12:59 12:59 12:59 WBC 6.1 (4.3-11.1) K/mcL RBC 3.57 L (4.19-5.50) M/mcL Hgb 10.5 L (12.9-16.9) g/dL Hct 32.3 L (37.5-50.1) % MCV 90.5 (83.0-100.0) fL MCH 29.4 (28.0-33.3) pg MCHC 32.5 (31.6-35.5) g/dL RDW 14.8 H (11.5-14.5) % Plt Count 261 (140-400) K/mcL MPV 9.3 L (9.4-12.4) fL Immature Gran % 0.7 (0-4) % Seg Neutrophils % 59.0 % Lymphocytes % 26.4 % Monocytes % 9.0 % Eosinophils % 4.4 % Basophils % 0.5 % Neutrophils # 3.6 (1.6-8.9) K/mcL Lymphocytes # 1.6 (0.6-4.6) K/mcL Monocytes # 0.6 (0.0-1.3) K/mcL Eosinophils # 0.3 (0.0-0.6) K/mcL Basophils # 0.0 (0.0-0.2) K/mcL PT 19.9 H (9.4-12.1) Seconds INR 1.8 APTT 42.2 H (26.0-36.0) Seconds Sodium 140 (136-145) mEq/L Potassium 3.7 (3.5-5.1) mEq/L Chloride 104 (98-107) mEq/L Carbon Dioxide 31 H (23-29) mEq/L BUN 17 (8-23) mg/dL Creatinine 0.87 (0.70-1.30) mg/dL Est GFR ( Amer) > 60 (> 60) Est GFR (Non-Af Amer) > 60 (> 60) BUN/Creatinine Ratio 20 (6-26) Glucose 118 H (70-105) mg/dL Calculated Osmolality 293 (280-300) Calcium 8.7 (8.6-10.3) mg/dL Total Bilirubin 0.4 (0.3-1.0) mg/dL Direct Bilirubin 0.0 (0.0-0.2) mg/dL Indirect Bilirubin 0.4 (0.0-1.2) mg/dL AST 13 (13-39) Units/L ALT 5 L (7-52) Units/L Alkaline Phosphatase 100 (34-104) Units/L Troponin I < 0.03 (< 0.04) ng/mL Serum Total Protein 7.2 (6.4-8.9) g/dL Albumin 3.3 L (3.5-5.7) g/dL Globulin 3.9 H (2.4-3.5) g/dL Albumin/Globulin Ratio 0.8 L (1.1-2.2) - Radiology Data Radiology results reviewed: Yes I reviewed the patient's radiology results. Chest X-Ray 12/25/17 12:24 IMPRESSION: Stable portable study. D/ / Regine Blanco Cha, MD / Regine Blanco Cha, MD Interpreting Provider: Regine Blanco Cha, MD Head CT 12/25/17 12:24 IMPRESSION: Interval development of low attenuation within the left occipital lobe most suggestive of acute to subacute infarct, new since the prior study 10/21/2017. No acute hemorrhage. Findings were called to the ordering service at 1:07 pm on 12/25/2017. D/ / Regine Blanco Cha, MD / Regine Blanco Cha, MD Interpreting Provider: Regine Blanco Cha, MD I discussed the patient's CAT scan with radiologists and she compared the CT scan from November 27 2017 which is similar appearing to today. The patient does not have a new infarct. - EKG Data Rate: normal Rhythm: other (atrial paced) Smoot/QRS: normal Interpretation: normal EKG, nonspecific ST-T wave changes TPA Checklist - Source Information Source: EMS - Eligibilty for IV tPA 1. LKW equal to or less than 4.5 hours be before treatment: Yes 2. Clinical diagnosis of ischemic stroke causing deficit: No 3. Age 18 years or older: Yes - Contraindications 4. Evidence of intracranial hemorrhage on pretreatment CT: No 5. Presentation suggests subarachnoid hem, even if CT normal: No 6. CT shows multilobar infarction: No 7. Known neoplasm, arteriovenous malformation, or aneurysm: No 8. Significant head trauma (w/ LOC) or CVA in last 3 months: No 9. BP elevated (systolic > 185 or diastolic > 110): No 10. Abnormal Blood Glucose (<50 or >400mg/dl): No 11. Active internal bleeding [PM.TPA15]: No 12. Known bleeding risk (including; not limited to 13-15): No 13. Heparin/argatroban/bivalirudin w/in 48hrs & PTT > normal: No 14. Platelet count less than 100,000/MM3: No 15. Current or recent use of anticoagualants (see protocol): Yes - Warnings/Precautions Considerations 16. Prior ischemic stroke within last 3 months: Yes 17. Recent history of intracranial hemorrhage: No 18. : No 19. Current/recent use Effient (7 days) or Brilinta (5 days): No 20. Arterial puncture at non compressible site or LP >7days: No 21. Major surgery or serious trauma in last 14 days: No 22. GI or urinary tract hemorrhage in last 21 days: No 23. VA involving left anterior myocardium in last 3 months: No 24. Suspected or known infective endocarditis/pericarditis: No - LKW: 3-4.5 hrs Add. Warnings/Precautions 21. oral anticoag other than warfarin regardles of last dose: Yes Patient/family understanding: The patient/family members have been counseled and understood the risk, benefit , and alternatives of treatment. NIH Stroke Scale - Level of Consciousness LOC: Alert - LOC Questions LOC Questions: Answers one correctly - LOC Commands LOC Commands: Performs both correctly - Best Gaze Best Gaze: Normal - Visual Visual: No visual loss - Facial Palsy Facial Palsy: Normal - Motor Arms Motor Arm-Left: No drift for 10 seconds Motor Arm-Right: No drift for 10 seconds - Motor Legs Motor Leg-Left: No drift for 5 seconds Motor Leg-Right: No drift for 5 seconds - Limb Ataxia Limb Ataxia: Absent of affected limb too weak to perform exam - Sensory Sensory: Normal - Best Language Best Language: No aphasia - Dysarthria Dysarthria: Normal (Able to articulate words then starts to mumble.) - Extinction and Inattention Extinction and Inattention: Normal - NIHSS Total Score NIHSS Total Score: 1
[2017-12-25 13:05] LABS: Basophils % 0.5 %; Eosinophils # 0.3 K/mcL (0.0-0.6); Eosinophils % 4.4 %; Hematocrit 32.3 % (37.5-50.1); Hemoglobin 10.5 g/dL (12.9-16.9); Immature Granulocytes % 0.7 % (0-4); Lymphocytes # 1.6 K/mcL (0.6-4.6); Lymphocytes % 26.4 %; Mean Corpuscular HGB Conc 32.5 g/dL (31.6-35.5); Mean Corpuscular Hemoglobin 29.4 pg (28.0-33.3); Mean Corpuscular Volume 90.5 fL (83.0-100.0); Mean Platelet Volume 9.3 fL (9.4-12.4); Monocytes # 0.6 K/mcL (0.0-1.3); Neutrophils # 3.6 K/mcL (1.6-8.9); Platelet Count 261 K/mcL (140-400); Red Blood Count 3.57 M/mcL (4.19-5.50); Red Cell Distribution Width 14.8 % (11.5-14.5)
[2017-12-25 13:13] LABS: INR 1.8; Prothrombin Time 19.9 Seconds (9.4-12.1)
[2017-12-25 13:15] LABS: Activated Partial Thrombo Time 42.2 Seconds (26.0-36.0)
[2017-12-25 13:24] LABS: Alanine Aminotransferase 5 Units/L (7-52); Albumin 3.3 g/dL (3.5-5.7); Albumin/Globulin Ratio 0.8 (1.1-2.2); Alkaline Phosphatase 100 Units/L (34-104); Aspartate Amino Transferase 13 Units/L (13-39); BUN/Creatinine Ratio 20 (6-26); Bilirubin,Indirect 0.4 mg/dL (0.0-1.2); Bilirubin,Total 0.4 mg/dL (0.3-1.0); Blood Urea Nitrogen 17 mg/dL (8-23); Calcium 8.7 mg/dL (8.6-10.3); Carbon Dioxide 31 mEq/L (23-29); Chloride 104 mEq/L (98-107); Globulin 3.9 g/dL (2.4-3.5); Glucose 118 mg/dL (70-105); Osmolality,Calculated 293 (280-300); Potassium 3.7 mEq/L (3.5-5.1); Sodium 140 mEq/L (136-145); Total Protein 7.2 g/dL (6.4-8.9); eGFR For African Americans > 60 (> 60); eGFR For Non-African Americans > 60 (> 60)
[2017-12-25 13:26] LABS: Troponin I < 0.03 ng/mL (< 0.04)
[2017-12-25] MEDS ORDERED: *HR* Labetalol 100 MG/20 ML MDV IVP ONE ×2 (14:24→14:42)
[2017-12-25] MEDS ORDERED: Naloxone 0.4 MG/ML INJ IVP PRN (14:42)
[2017-12-25] MEDS ORDERED: Acetaminophen 325 MG TABLET PO PRN ×2 (14:42)
[2017-12-25] MEDS ORDERED: Ondansetron 4 MG/2 ML VIAL IVP PRN (14:42)
[2017-12-25] MEDS ORDERED: Aspirin Enteric Coated 81 MG Tablet PO SCH (18:45)
--- NOTE | 2017-12-25 18:47 | Internal Med History&Physical ---
Date of Encounter: 12/25/17 Time of Encounter: 18:15 Assessment and Plan (1) Syncope Current visit: No Status: Acute Etiology not determined. We will check orthostatic vital signs in a.m. Telemetry monitoring will be done and further workup as indicated. Qualifiers: Syncope type: unspecified Qualified Code(s): R55 - Syncope and collapse (2) TIA (transient ischemic attack) Current visit: No Status: Acute Continue Xarelto, Plavix, and reduced aspirin dose to avoid GI bleed/hematuria. Qualifiers: Transient cerebral ischemia type: unspecified Qualified Code(s): G45.9 - Transient cerebral ischemic attack, unspecified (3) Atrial fibrillation Current visit: No Status: Acute Continue Xarelto Qualifiers: Atrial fibrillation type: paroxysmal Qualified Code(s): I48.0 - Paroxysmal atrial fibrillation (4) Anemia Current visit: No Status: Chronic Continue ferrous sulfate with vitamin C Qualifiers: Anemia type: unspecified type Qualified Code(s): D64.9 - Anemia, unspecified Internal Medicine - H&P: HPI Chief complaint: Syncope and dysphasia Plans for Post Hospital Care: Transfer Care Home Facility History of present illness: Mr. Cloud is a 87 year old male who was brought to emergency room after he had a syncopal episode while sitting during pentecostalism services at the [facility]. His was beside him and noted he was unresponsive. He was immediately wheeled into the hallway and vitals were checked. Blood pressure was reported to be low per ER report to me but no documentation of actual blood pressure recorded. He was brought to emergency room and evaluated and found to have elevated blood pressure in ER. He was admitted to [facility] floor for ongoing care needs. He was discharged from [facility] approximately 4 weeks ago following a syncopal episode while he was sitting at the breakfast table at the SNF. There was no seizure activity reported and he regained consciousness after short time. He did not have bowel or bladder control loss with syncopal episode today. He has had known past CVAs with left occipital infarct seen on November 2017 CT scan which was new since October [address] scan. No new changes were seen on head CT in ER today. He had TIA August 2017 with some speech disturbance which has returned to baseline. He was placed on antiplatelet agents. He was diagnosed with Parkinson's disease approximately 2012. 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 Past Med Surg Social Fam HX - Past Medical History Medical history: atrial fibrillation, hyperlipidemia, other, TIA, coronary artery disease Psychiatric history: no psych history - Social History Smoking Status: Never smoker Smokeless Tobacco Status: No Alcohol use: none Drug use: none Internal Medicine - H&P: Meds Aspirin [Lo-Dose Aspirin EC] 81 mg PO DAILY 09/14/17 [History] Carbidopa/Levodopa ER 50/200 [Sinemet ER 50-200 Tab] 1 each PO BID 09/14/17 [ History] Levothyroxine [Synthroid] 75 mcg PO DAILY@0630 #30 tablet 10/24/17 [Rx] Atorvastatin [Lipitor] 20 mg PO HS tablet 10/28/17 [Rx] Clopidogrel [Plavix] 75 mg PO DAILY tablet 10/28/17 [Rx] Ascorbic Acid [Vitamin C] 500 mg PO 0630 tablet 11/30/17 [Rx] Finasteride [Proscar] 5 mg PO DAILY tablet 11/30/17 [Rx] Fludrocortisone Acetate [Florinef] 0.1 mg PO DAILY tablet 11/30/17 [Rx] Pramipexole [Mirapex] 0.25 mg PO DAILY 365 Days tablet 11/30/17 [Rx] Tamsulosin [Flomax] 0.8 mg PO HS #0 11/30/17 [Rx] Lactobacillus [Culturelle] 1 each PO BID #10 cap.sprink 12/14/17 [Rx] Acetaminophen [Non-Aspirin] 650 mg PO PRN PRN 12/25/17 [History] Ferrous Sulfate 325 mg PO DAILY 12/25/17 [History] Rivaroxaban [Xarelto] 15 mg PO DAILY 12/25/17 [History] 3 Allergy/AdvReac Type Severity Reaction Status Date / Time No Known Allergies Allergy Verified 12/14/17 13:07 All Systems PM: A 10-system review of systems was performed and is negative for pertinent findings except as documented above in the HPI. Review of systems: Review of systems from his November 2017 [facility] hospitalization were reviewed and revised as below. Gen.: His weight is increased from 78.557 kg on 11/30/2017 to 81.647 kg on admission now. Cardiovascular: He was started on Florinef during his recent [facility] hospitalization for likely autonomic dysfunction. Blood pressure has been frequently documented elevated since starting the Florinef. He has had no further syncopal episodes however since beginning it. 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 He had syncope/collapse at the SNF since that [facility] stay while participating in therapy walking down the bydr prior to initiation of Florinef. There have been no recurrent syncopal episodes prior to today. He has chronic atrial fibrillation. He has known ASHD with a single stent placed and 2002. [place], DVT or pulmonary embolus. He was started on Xarelto 3 days ago because of atrial fibrillation. It was not started previously because of hematuria during an [facility] hospitalization. Respiratory: He is a lifelong nonsmoker and has no known chronic lung disease GI: Denies disorders of his liver gallbladder or exocrine pancreas : He has BPH. He denies other kidney or bladder disorders except for recent hematuria. He has not had a UTI in many years. Neurologic: As per history of present illness Endocrine: He denies diabetes but has hypothyroidism and hyperlipidemia Hematology/oncology: He has chronic anemia with anemia testing done 11/18/2017 showing iron 50, transferrin saturation 17, transferrin 205, ferritin 66, B12 713, and folate 14.8. He was started on ferrous sulfate with vitamin C. He denies internal malignancies other blood disorders. Psychiatric: He has expressed feelings of depression but stated he did not want medication for this. He denies other mental health diagnoses. [place] skeletal: He has no significant arthritis gout or other bone joint or muscle disorders. - Constitutional Vitals: Temp Pulse Resp BP Pulse Ox 97.0 F L 60 16 190/77 99 12/25/17 13:27 12/25/17 15:00 12/25/17 15:00 12/25/17 15:00 12/25/17 15:00 Exam: Gen.: He is a well-developed well-nourished male lying in bed who appears in no acute distress. He denies dyspnea. He states he has some pain in his SCM area bilaterally more on the left than the right. HEENT: Head is atraumatic and normocephalic. Eyes: He has a left eye prosthesis. Right eye shows no scleral icterus. Mouth: Mucosa is moist. Neck: There is no thyromegaly or adenopathy noted. There is no significant tenderness on palpating the SCM. Heart: Regular without murmurs gallops or ectopics Chest: Pacemaker is in place in the left upper chest area. Lungs: No wheezes or crackles are heard. Abdomen: Soft and nontender. No masses or guarding are noted. Extremities: There is no cyanosis edema or clubbing noted. Dorsalis pedis and posttibial pulses are trace to 1+ palpable bilaterally. Neurologic: Mental status: He is able to answer an occasional question but is confused. His speech has frequent dysnomia occurrences. Cranial nerves: Facial movements are symmetric. EOMI. Forehead wrinkles bilaterally. Tongue protrudes midline. Motor: He has cogwheeling rigidity on passive range of motion. Ankle flexion and extension strength against resistance is symmetric. Cerebellar: He does not comprehend command to do finger to nose testing. Skin: Warm and dry Internal Med - H&P Results - Labs CBC & Chem 7: 12/25/17 12:59 12/25/17 12:59
[2017-12-25] MEDS ORDERED: Carbidopa/Levodopa ER 50/200 TABLET PO SCH (21:00)
[2017-12-25] MEDS ORDERED: Lactobacillus 1 EACH CAP.SPRINK PO SCH (21:00)
[2017-12-26] MEDS ORDERED: Ondansetron 4 MG/2 ML VIAL IVP PRN (04:46)
[2017-12-26] MEDS ORDERED: Acetaminophen 325 MG TABLET PO PRN (04:46)
[2017-12-26] MEDS ORDERED: Naloxone 0.4 MG/ML INJ IVP PRN (04:46)
[2017-12-26] MEDS ORDERED: Ascorbic Acid 500 MG TABLET PO SCH (06:30)
[2017-12-26] MEDS: Ascorbic Acid 500 MG TABLET PO SCH (06:56)
[2017-12-26] MEDS ORDERED: Aspirin Enteric Coated 81 MG Tablet PO SCH (09:00)
[2017-12-26] MEDS ORDERED: Finasteride 5 MG TABLET PO SCH (09:00)
[2017-12-26] MEDS: Carbidopa/Levodopa ER 50/200 TABLET PO SCH ×2 (11:05→22:50)
[2017-12-26] MEDS: Finasteride 5 MG TABLET PO SCH (11:05)
[2017-12-26] MEDS: Lactobacillus 1 EACH CAP.SPRINK PO SCH ×2 (11:05→22:50)
--- NOTE | 2017-12-26 14:54 | Internal Med Progress Note ---
Date of Encounter: 12/26/17 Time of Encounter: 09:00 - Assessment and plan (1) Syncope Current Visit: No Status: Acute Assessment and plan: December 26. Orthostatic vital signs showed blood pressure decreasing from 168/72 lying to 95/53 standing. The patient was sitting when syncope occurred yesterday. I told family he could have had drop in blood pressure or possible seizure. EEG was done today at [facility] with report pending. Qualifiers: Syncope type: unspecified Qualified Code(s): R55 - Syncope and collapse (2) TIA (transient ischemic attack) Current Visit: No Status: Acute Assessment and plan: December 26. Continue Xarelto, Plavix, and every other day aspirin Qualifiers: Transient cerebral ischemia type: unspecified Qualified Code(s): G45.9 - Transient cerebral ischemic attack, unspecified (3) Atrial fibrillation Current Visit: No Status: Acute Assessment and plan: December 26. Continue Xarelto Qualifiers: Atrial fibrillation type: paroxysmal Qualified Code(s): I48.0 - Paroxysmal atrial fibrillation (4) Anemia Current Visit: No Status: Chronic Assessment and plan: December 26. Continue ferrous sulfate with vitamin C Qualifiers: Anemia type: unspecified type Qualified Code(s): D64.9 - Anemia, unspecified - Subjective Interval history: December 26. He has no new complaints and feels better. He does not recall the events that led to hospitalization yesterday. - Constitutional Vitals: Temp Pulse Resp BP Pulse Ox 97.4 F L 67 18 199/87 97 12/26/17 14:39 12/26/17 14:39 12/26/17 14:39 12/26/17 14:39 12/26/17 14:39 Exam: He is sitting in a chair at bedside resting comfortably. His affect is bright and cheerful. His speech is appropriate now. I reviewed his medications Internal Medicine: Result - Labs CBC & Chem 7: 12/25/17 12:59 12/25/17 12:59 - ABG Interpretation ABG results: PT/INR, D-dimer PT 19.9 Seconds (9.4-12.1) H 12/25/17 12:59 Consult Discharge Plan - Plan Referrals: Tate Go DO [Primary Care Provider] - 1 week
[2017-12-26] MEDS ORDERED: *HR* Rivaroxaban 15 MG TABLET PO SCH (18:00)
[2017-12-26] MEDS: *HR* Rivaroxaban 15 MG TABLET PO SCH (18:39)
[2017-12-27] MEDS: Ascorbic Acid 500 MG TABLET PO SCH (06:34)
[2017-12-27] MEDS: Finasteride 5 MG TABLET PO SCH (09:43)
[2017-12-27] MEDS: Lactobacillus 1 EACH CAP.SPRINK PO SCH ×2 (09:44→21:22)
[2017-12-27] MEDS: Carbidopa/Levodopa ER 50/200 TABLET PO SCH ×2 (09:44→21:22)
--- NOTE | 2017-12-27 15:41 | Internal Med Progress Note ---
Date of Encounter: 12/27/17 Time of Encounter: 14:00 - Assessment and plan (1) Syncope Current Visit: No Status: Acute Assessment and plan: December 26. Orthostatic vital signs showed blood pressure decreasing from 168/72 lying to 95/53 standing. The patient was sitting when syncope occurred yesterday. I told family he could have had drop in blood pressure or possible seizure. EEG was done today at [facility] with report pending. December 27. No further syncope or near syncopal episodes. Continue present regimen. Qualifiers: Syncope type: unspecified Qualified Code(s): R55 - Syncope and collapse (2) TIA (transient ischemic attack) Current Visit: No Status: Acute Assessment and plan: December 26. Continue Xarelto, Plavix, and every other day aspirin Qualifiers: Transient cerebral ischemia type: unspecified Qualified Code(s): G45.9 - Transient cerebral ischemic attack, unspecified (3) Atrial fibrillation Current Visit: No Status: Acute Assessment and plan: December 26. Continue Xarelto Qualifiers: Atrial fibrillation type: paroxysmal Qualified Code(s): I48.0 - Paroxysmal atrial fibrillation (4) Anemia Current Visit: No Status: Chronic Assessment and plan: December 26. Continue ferrous sulfate with vitamin C Qualifiers: Anemia type: unspecified type Qualified Code(s): D64.9 - Anemia, unspecified - Subjective Interval history: December 26. He has no new complaints and feels better. He does not recall the events that led to hospitalization yesterday. December 27. He has no new complaints. - Constitutional Vitals: Temp Pulse Resp BP Pulse Ox 97.3 F L 60 14 121/66 96 12/27/17 11:14 12/27/17 11:14 12/27/17 11:14 12/27/17 11:14 12/27/17 11:14 Exam: He is sitting in a chair at bedside resting currently. His affect is bright and cheerful. I reviewed his medications. Internal Medicine: Result - Labs CBC & Chem 7: 12/25/17 12:59 12/25/17 12:59 - ABG Interpretation ABG results: PT/INR, D-dimer PT 19.9 Seconds (9.4-12.1) H 12/25/17 12:59 Consult Discharge Plan - Plan Referrals: Tate Go DO [Primary Care Provider] - 1 week
[2017-12-27] MEDS ORDERED: *HR* LORazepam 2 MG/ML VIAL IVP PRN (17:36)
[2017-12-27] MEDS: *HR* Rivaroxaban 15 MG TABLET PO SCH (17:36)
[2017-12-27] MEDS ORDERED: Aspirin Enteric Coated 81 MG Tablet PO SCH (18:45)
[2017-12-27 20:10] LABS: Bilirubin,Urine Negative (Negative); Blood,Urine Negative (Negative); Clarity,Urine Clear (Clear); Color,Urine Yellow (Yellow); Glucose,Urine (UA) Normal (Normal); Ketones,Urine Trace mg/dL (Negative); Leukocyte Esterase,Urine Negative (Negative); Nitrite,Urine Negative (Negative); PH,Urine 5.5 pH Units (5.0-8.0); Protein,Urine Trace mg/dL (Neg-Trace); Urobilinogen,Urine Normal (Normal)
--- NOTE | 2017-12-28 00:19 | Electrocardiograph Report ---
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
[2017-12-28] MEDS: Ascorbic Acid 500 MG TABLET PO SCH (05:49)
[2017-12-28 06:07] LABS: Basophils # 0.1 K/mcL (0.0-0.2); Basophils % 0.9 %; Eosinophils # 0.4 K/mcL (0.0-0.6); Eosinophils % 6.7 %; Hematocrit 27.6 % (37.5-50.1); Hemoglobin 8.9 g/dL (12.9-16.9); Immature Granulocytes % 0.5 % (0-4); Lymphocytes # 1.5 K/mcL (0.6-4.6); Lymphocytes % 26.5 %; Mean Corpuscular HGB Conc 32.2 g/dL (31.6-35.5); Mean Corpuscular Hemoglobin 28.6 pg (28.0-33.3); Mean Corpuscular Volume 88.7 fL (83.0-100.0); Mean Platelet Volume 9.9 fL (9.4-12.4); Monocytes # 0.6 K/mcL (0.0-1.3); Monocytes % 10.7 %; Neutrophils # 3.2 K/mcL (1.6-8.9); Platelet Count 243 K/mcL (140-400); Red Blood Count 3.11 M/mcL (4.19-5.50); Red Cell Distribution Width 15.2 % (11.5-14.5); Segmented Neutrophils % 54.7 %
[2017-12-28 06:30] LABS: BUN/Creatinine Ratio 34 (6-26); Blood Urea Nitrogen 27 mg/dL (8-23); Calcium 8.3 mg/dL (8.6-10.3); Carbon Dioxide 28 mEq/L (23-29); Chloride 108 mEq/L (98-107); Glucose 108 mg/dL (70-105); Osmolality,Calculated 296 (280-300); Potassium 3.5 mEq/L (3.5-5.1); Sodium 140 mEq/L (136-145); eGFR For African Americans > 60 (> 60); eGFR For Non-African Americans > 60 (> 60)
[2017-12-28] MEDS: Finasteride 5 MG TABLET PO SCH (09:14)
[2017-12-28] MEDS: Carbidopa/Levodopa ER 50/200 TABLET PO SCH (09:15)
[2017-12-28] MEDS: Lactobacillus 1 EACH CAP.SPRINK PO SCH (09:15)
[2017-12-28 12:28] VITALS: BP 157/78
--- NOTE | 2017-12-28 14:15 | Discharge Summary ---
Date of Encounter: 12/28/17 Time of Encounter: 12:15 - Discharge Diagnosis (1) Syncope Priority: Primary Status: Acute Qualifiers: Syncope type: unspecified Qualified Code(s): R55 - Syncope and collapse (2) TIA (transient ischemic attack) Priority: Secondary Status: Acute Qualifiers: Transient cerebral ischemia type: unspecified Qualified Code(s): G45.9 - Transient cerebral ischemic attack, unspecified (3) Atrial fibrillation Priority: Secondary Status: Acute Qualifiers: Atrial fibrillation type: paroxysmal Qualified Code(s): I48.0 - Paroxysmal atrial fibrillation (4) Anemia Priority: Secondary Status: Chronic Qualifiers: Anemia type: unspecified type Qualified Code(s): D64.9 - Anemia, unspecified Hospital course: Mr. Cloud is a 87 year old male who was brought to emergency room after he had a syncopal episode while sitting during episcopalian services at the [facility]. His was beside him and noted he was unresponsive. He was immediately wheeled into the hallway and vitals were checked. Blood pressure was reported to be low per ER report to me but no documentation of actual blood pressure recorded. He was brought to emergency room and evaluated and found to have elevated blood pressure in ER. He was admitted to [facility] for ongoing care needs. Initial orders were written by the emergency room physician. I saw him on December 25 and performed a history and physical. He had no further syncopal or near syncopal episodes. Telemetry monitoring showed no dysrhythmias. Orthostatic vital signs showed over 60 mmHg systolic blood pressure drop from lying to standing. Proscar and Flomax were discontinued to lessen risk of ongoing orthostatic pressure drop. He will continue to use DAYANNA hose and take Florinef. An EEG was done as an outpatient at [facility] on December 26. The result of this is pending at time of discharge. On December 28 his stated she wished to take him home rather than returning back to [facility]. He will follow with Dr. Go within 1 week. Home health services will be ordered. - Time Spent with Patient Total time spent providing and/or coordinating discharge services: - Discharge Medications Home Medications: Aspirin [Lo-Dose Aspirin EC] 81 mg PO DAILY 09/14/17 [History] Carbidopa/Levodopa ER 50/200 [Sinemet ER 50-200 Tab] 1 each PO BID 09/14/17 [ History] Levothyroxine [Synthroid] 75 mcg PO DAILY@0630 #30 tablet 10/24/17 [Rx] Atorvastatin [Lipitor] 20 mg PO HS tablet 10/28/17 [Rx] Clopidogrel [Plavix] 75 mg PO DAILY tablet 10/28/17 [Rx] Ascorbic Acid [Vitamin C] 500 mg PO 0630 tablet 11/30/17 [Rx] Fludrocortisone Acetate [Florinef] 0.1 mg PO DAILY tablet 11/30/17 [Rx] Pramipexole [Mirapex] 0.25 mg PO DAILY 365 Days tablet 11/30/17 [Rx] Acetaminophen [Non-Aspirin] 650 mg PO PRN PRN 12/25/17 [History] Ferrous Sulfate 325 mg PO DAILY 12/25/17 [History] Rivaroxaban [Xarelto] 15 mg PO DAILY 12/25/17 [History] Allergies/Adverse Reactions: 3 Allergy/AdvReac Type Severity Reaction Status Date / Time No Known Allergies Allergy Verified 12/14/17 13:07 Date of admission: 12/25/17 14:33 Primary care physician: Tate Go DO Consults: 12/26/17 09:07 Consult to Occupational Therapy [CONS] Routine Comment: Evaluate, develop and implement POC Reason for Consult: Weakness Does patient have active BEDREST order?: No Is patient medically & hemodynamically stable?: Yes Patient assessed for mobility or mobilized this visit?: Yes Consult to Physical Therapy [CONS] Routine Comment: Evaluate, develop and implement POC Reason for Consult: Weakness Does patient have active BEDREST order?: No Is patient medically & hemodynamically stable?: Yes Patient assessed for mobility or mobilized this visit?: Yes - Constitutional Vitals: Temp Pulse Resp BP Pulse Ox 97.5 F L 60 18 157/78 96 12/28/17 12:19 12/28/17 12:19 12/28/17 12:19 12/28/17 12:19 12/28/17 12:19 - Patient Status Disposition: Home Health Service Condition: Fair - Discharge Instructions Follow Up With: Tate Go DO [Primary Care Provider] - 1 week - Diet and Activity Activity: as per physical therapy, resume usual activities as tolerated Diet: advance to your usual diet
--- NOTE | 2017-12-28 14:22 | Physician Discharge Referral ---
Home Health/Hosp Referral Info Transfer to: Home Health Attending Provider: Joel Provider in Charge Post Discharge: PCP (Tate Go D.O.) - Diagnosis (1) Syncope Priority: Primary Status: Acute (2) TIA (transient ischemic attack) Priority: Secondary Status: Acute (3) Atrial fibrillation Priority: Secondary Status: Acute (4) Anemia Priority: Secondary Status: Chronic - Respiratory Orders Smoking Cessation: Smoking cessation has been advised. For more information, call the [place] Tobacco Quit Line at 9-070-WHKD-NOW. - Diet/Nutrition Diet/Nutrition Orders: Regular - Activity Activity Orders: Walker - Services Needed Following services are medically necessary services: Nursing, Home Health Aide, Physical Therapy, Occupational Therapy - Transfer Medications Home Medications: Aspirin [Lo-Dose Aspirin EC] 81 mg PO DAILY 09/14/17 [History] Carbidopa/Levodopa ER 50/200 [Sinemet ER 50-200 Tab] 1 each PO BID 09/14/17 [ History] Levothyroxine [Synthroid] 75 mcg PO DAILY@0630 #30 tablet 10/24/17 [Rx] Atorvastatin [Lipitor] 20 mg PO HS tablet 10/28/17 [Rx] Clopidogrel [Plavix] 75 mg PO DAILY tablet 10/28/17 [Rx] Ascorbic Acid [Vitamin C] 500 mg PO 0630 tablet 11/30/17 [Rx] Fludrocortisone Acetate [Florinef] 0.1 mg PO DAILY tablet 11/30/17 [Rx] Pramipexole [Mirapex] 0.25 mg PO DAILY 365 Days tablet 11/30/17 [Rx] Acetaminophen [Non-Aspirin] 650 mg PO PRN PRN 12/25/17 [History] Ferrous Sulfate 325 mg PO DAILY 12/25/17 [History] Rivaroxaban [Xarelto] 15 mg PO DAILY 12/25/17 [History] Allergies/Adverse Reactions: 3 Allergy/AdvReac Type Severity Reaction Status Date / Time No Known Allergies Allergy Verified 12/14/17 13:07 Certification: Further, I certify that my clinical findings support that this patient is homebound (i.e. absences from home require considerable and taxing effort and are for medical reasons or mormonism services or infrequently or short duration when for other reasons) because: Homebound Reason: Leaving home requires considerable and taxing effort due to condition (Autonomic insufficiency with orthostatic hypotension) Attestation: My signature below is to certify that this patient is under my care and that I, or nurse practitioner, or a physician's miller head assistant wet process working with me, has a face-to -face encounter with this patient.
== END 2017-12-28 15:10 | disposition home health service (06) ==
LOC: EMEROOPIK 12:16 → INPPIK 12:16
PROVIDERS: ADMIT Internal Medicine; ATTEND Internal Medicine

== ENCOUNTER 2018-03-28 05:15 | Observation (INO) ==
--- NOTE | 2018-03-28 05:22 | Emergency Department Note ---
Disposition Clinical Impression: Confusion, Weakness Disposition: Admitted As Inpatient Condition: Good Forms: ED Satisfaction Letter Time of Disposition: 07:30 (Dr Maldonado accepted him) General Adult HPI - General Chief complaint: ED Weakness Stated complaint: AMS Source: patient, family, EMS Mode of arrival: EMS Nursing Notes Reviewed: Yes - History of Present Illness HPI Narrative: Patient is a pleasant 87 yo male with past medical history significant for HTN , TIA, prior stroke and GERD who is presenting to [facility] Emergency Room with a chief complaint off by EMS after he was confused at the bathroom, thought he has stroke. States that he was unresponsive and therefore called EMS. EMS reported that he was not moving his extremities and not responding to verbal stimuli. Stroke alert was activated and patient was prompted immediately to the CT scan. On exam patient was found to be moving all his extremities equally and all his cranial nerves were intact. Patient denies any fever or chills. Pt also denies any eye pain or visual disturbances. There is no sore throat or facial or nasal congestion. There is no chest pain or racing heart. No shortness of breath or cough. There is no abdominal pain, nausea, vomiting or diarrhea. No dysuria or flank pain. There is no muskulo-skeletal pain, arthralgia or back pain. Patient also denies rash or pruritus. There is no neurological manifestations, no headache, no vertigo or weakness. The patient also denies any depression, hallucinations and there are no homicidal or suicidal ideations. There is no polyuria or polydipsia. There is no easy bruising or bleeding. Review of other systems is otherwise negative except above. 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 - Related Data Home Medications Medication Instructions Recorded Confirmed Aspirin [Lo-Dose Aspirin EC] 81 mg PO DAILY 09/14/17 02/19/18 Carbidopa/Levodopa ER 50/200 1 tab PO BID 09/14/17 03/28/18 [Sinemet ER 50-200 Tab] Ferrous Sulfate 325 mg PO BID 12/25/17 03/28/18 Ascorbic Acid [Vitamin C] 500 mg PO DAILY 01/20/18 03/28/18 Finasteride [Proscar] 5 mg PO DAILY 01/20/18 03/28/18 Levothyroxine Sodium [Levoxyl] 75 mcg PO DAILY 01/21/18 03/28/18 Pramipexole [Mirapex] 0.25 mg PO HS 01/21/18 03/28/18 Atorvastatin Calcium [Lipitor] 20 mg PO DAILY 02/18/18 03/28/18 Previous Rx's Medication Instructions Recorded Fludrocortisone Acetate [Florinef] 0.1 mg PO DAILY tablet 11/30/17 Pantoprazole Sodium 40 mg PO DAILY #30 tablet. 01/23/18 Allergies Allergy/AdvReac Type Severity Reaction Status Date / Time No Known Allergies Allergy Verified 03/28/18 05:35 All systems ED: reviewed and negative except as stated. Review of Systems: As Per HPI Constitutional: Denies: fever, chills, weakness Eyes: Denies: eye pain, eye discharge ENT ED: Denies: ear pain, throat pain Cardiovascular: Denies: chest pain, palpitations Respiratory: Denies: cough, dyspnea Gastrointestinal: Denies: abdominal pain, nausea Genitourinary: Denies: urgency, dysuria Musculoskeletal: Denies: back pain, neck pain Past Medical History - Past Medical History Medical history: Reports: atrial fibrillation, coronary artery disease, GERD, hyperlipidemia, thyroid disease, TIA, other Surgical history: Reports: angioplasty/stent, pacemaker/AICD, vasectomy Psychiatric history: Reports: no psych history - Social History Smoking Status: Never smoker Smokeless Tobacco Status: No Alcohol use: Reports: none Drug use: Reports: none Physical Exam - General Limitations: no limitations General appearance: alert, in no apparent distress - Head Head exam: atraumatic, normocephalic, normal inspection - Eye Eye exam: Present: normal appearance, PERRL, EOMI - Expanded Eye Exam Pupils: Left: reactive - ENT ENT exam: normal exam, normal oropharynx, mucous membranes moist - Expanded ENT Exam External ear exam: Present: normal external inspection Mouth exam: Present: normal external inspection Teeth exam: Present: normal inspection Throat exam: Present: normal inspection - Neck Neck exam: Present: normal inspection, full ROM, trachea midline - Chest Chest inspection: Present: normal inspection, symmetric chest wall rise - Respiratory Respiratory exam: Present: normal lung sounds bilaterally - Cardiovascular Cardiovascular exam: Present: regular rate, normal rhythm, normal heart sounds - Abdominal Exam Abdominal exam: Present: soft, Non-Tender. Absent: tenderness, distention, guarding, rebound, rigidity - Extremities Exam Extremities exam: Present: normal inspection, full ROM. Absent: tenderness, pedal edema - Expanded Upper Extremity Exam Shoulder exam: Present: normal inspection, full ROM Arm exam: Present: normal inspection, full ROM Elbow exam: Present: normal inspection, full ROM Forearm/Wrist exam: Present: normal inspection, full ROM Hand exam: Present: normal inspection, full ROM Vascular exam: Normal: capillary refill, radial pulse - Expanded Lower Extremity Exam Hip/Pelvis exam: Present: normal inspection, full ROM Upper leg exam: Present: normal inspection, full ROM Knee exam: Present: normal inspection, full ROM Lower leg exam: Present: normal inspection, full ROM Ankle exam: Present: normal inspection, full ROM Foot/toe exam: Present: normal inspection, full ROM Neurovascular/Tendon exam: Absent: motor deficit, sensory deficit, tendon deficit - Back Exam Back exam: Present: normal inspection, full ROM. 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 he was able to lift up his arms and extremities and move them equally he was able to get equal smile shark shoulder open his mouth tongue centralize no symptoms or signs of any pathological or indicated of stroke) - Expanded Neurological Exam Patient oriented to: Present: person, place, time Speech: Present: fluid speech Cranial nerves: EOM function (II, III, IV, ): Normal, facial sensation (V): Normal, tongue deviation (XII): Normal Cerebellar function: finger to nose: Normal, heel to mayo: Normal Coma Scale Eye Opening: Spontaneous Coma Scale Motor Response: Obeys Commands Coma Scale Verbal Response: Oriented Coma Scale Total: 15 - Psychiatric Psychiatric exam: Present: normal affect, normal mood - Skin Skin exam: Present: warm, dry, intact, normal color Course Vital Signs Temperature 97.0 F L 03/28/18 05:20 Pulse Rate 60 03/28/18 05:20 Respiratory Rate 16 03/28/18 05:20 Blood Pressure 165/95 03/28/18 05:20 O2 Sat by Pulse Oximetry 97 03/28/18 05:20 Temperature 97.0 F L 03/28/18 05:20 Pulse Rate 60 03/28/18 07:14 Respiratory Rate 14 03/28/18 07:14 Blood Pressure 177/85 03/28/18 07:14 O2 Sat by Pulse Oximetry 93 07/10/18 07:14 Oxygen Delivery Oxygen Delivery Room Air Medical Decision Making - MDM Narrative Medical decision making narrative: Stat cardiopulmonary monitoring Stroke alert was activated Patient's opted that he stay at the hospital since he is known to Dr. Maldonado - Medical Records Medical records reviewed: Yes I reviewed the patient's medical records. - Lab Data Lab results reviewed: Yes I reviewed the patient's lab results. Result diagrams: 03/28/18 05:55 03/28/18 05:55 Lab Results 03/28/18 03/28/18 03/28/18 Range/Units 05:55 05:55 05:55 WBC 5.4 (4.3-11.1) K/mcL RBC 3.89 L (4.19-5.50) M/mcL Hgb 11.7 L (12.9-16.9) g/dL Hct 36.1 L (37.5-50.1) % MCV 92.8 (83.0-100.0) fL MCH 30.1 (28.0-33.3) pg MCHC 32.4 (31.6-35.5) g/dL RDW 14.1 (11.5-14.5) % Plt Count 209 (140-400) K/mcL MPV 9.8 (9.4-12.4) fL Immature Gran % 0.4 (0-4) % Seg Neutrophils % 59.8 % Lymphocytes % 23.1 % Monocytes % 9.1 % Eosinophils % 7.0 % Basophils % 0.6 % Neutrophils # 3.2 (1.6-8.9) K/mcL Lymphocytes # 1.3 (0.6-4.6) K/mcL Monocytes # 0.5 (0.0-1.3) K/mcL Eosinophils # 0.4 (0.0-0.6) K/mcL Basophils # 0.0 (0.0-0.2) K/mcL PT 11.4 (9.4-12.1) Seconds INR 1.0 Sodium 137 (136-145) mEq/L Potassium 3.6 (3.5-5.1) mEq/L Chloride 104 (98-107) mEq/L Carbon Dioxide 27 (23-29) mEq/L BUN 21 (8-23) mg/dL Creatinine 0.94 (0.70-1.30) mg/dL Est GFR ( Amer) > 60 (> 60) Est GFR (Non-Af Amer) > 60 (> 60) BUN/Creatinine Ratio 22 (6-26) Glucose 110 H (70-105) mg/dL Calculated Osmolality 288 (280-300) Calcium 9.0 (8.6-10.3) mg/dL Magnesium 2.2 (1.6-2.6) mg/dL Total Bilirubin 0.4 (0.3-1.0) mg/dL AST 12 L (13-39) Units/L ALT 3 L (7-52) Units/L Alkaline Phosphatase 77 (34-104) Units/L Creatine Kinase 35 (30-223) Units/L Troponin I < 0.03 (< 0.04) ng/mL Serum Total Protein 6.9 (6.4-8.9) g/dL Albumin 3.7 (3.5-5.7) g/dL Globulin 3.2 (2.4-3.5) g/dL Albumin/Globulin Ratio 1.2 (1.1-2.2) Urine Color (Yellow) Urine Clarity (Clear) Urine pH (5.0-8.0) pH Units Ur Specific [place] (1.010-1.025) Urine Protein (Neg-Trace) mg/dL Urine Glucose (UA) (Normal) mg/dL Urine Ketones (Negative) mg/dL Urine Blood (Negative) Urine Nitrite (Negative) Urine Bilirubin (Negative) Urine Urobilinogen (Normal) mg/dL Ur Leukocyte Esterase (Negative) Ur Culture Indicated? (NO) 03/28/18 Range/Units 06:45 WBC (4.3-11.1) K/mcL RBC (4.19-5.50) M/mcL Hgb (12.9-16.9) g/dL Hct (37.5-50.1) % MCV (83.0-100.0) fL MCH (28.0-33.3) pg MCHC (31.6-35.5) g/dL RDW (11.5-14.5) % Plt Count (140-400) K/mcL MPV (9.4-12.4) fL Immature Gran % (0-4) % Seg Neutrophils % % Lymphocytes % % Monocytes % % Eosinophils % % Basophils % % Neutrophils # (1.6-8.9) K/mcL Lymphocytes # (0.6-4.6) K/mcL Monocytes # (0.0-1.3) K/mcL Eosinophils # (0.0-0.6) K/mcL Basophils # (0.0-0.2) K/mcL PT (9.4-12.1) Seconds INR Sodium (136-145) mEq/L Potassium (3.5-5.1) mEq/L Chloride (98-107) mEq/L Carbon Dioxide (23-29) mEq/L BUN (8-23) mg/dL Creatinine (0.70-1.30) mg/dL Est GFR ( Amer) (> 60) Est GFR (Non-Af Amer) (> 60) BUN/Creatinine Ratio (6-26) Glucose (70-105) mg/dL Calculated Osmolality (280-300) Calcium (8.6-10.3) mg/dL Magnesium (1.6-2.6) mg/dL Total Bilirubin (0.3-1.0) mg/dL AST (13-39) Units/L ALT (7-52) Units/L Alkaline Phosphatase (34-104) Units/L Creatine Kinase (30-223) Units/L Troponin I (< 0.04) ng/mL Serum Total Protein (6.4-8.9) g/dL Albumin (3.5-5.7) g/dL Globulin (2.4-3.5) g/dL Albumin/Globulin Ratio (1.1-2.2) Urine Color Yellow (Yellow) Urine Clarity Clear (Clear) Urine pH 6.0 (5.0-8.0) pH Units Ur Specific [place] 1.020 (1.010-1.025) Urine Protein Trace (Neg-Trace) mg/dL Urine Glucose (UA) Normal (Normal) mg/dL Urine Ketones Negative (Negative) mg/dL Urine Blood Negative (Negative) Urine Nitrite Negative (Negative) Urine Bilirubin Negative (Negative) Urine Urobilinogen Normal (Normal) mg/dL Ur Leukocyte Esterase Negative (Negative) Ur Culture Indicated? NO (NO) - Radiology Data Radiology results reviewed: Yes I reviewed the patient's radiology results.
[2018-03-28 06:02] LABS: Basophils % 0.6 %; Eosinophils # 0.4 K/mcL (0.0-0.6); Hematocrit 36.1 % (37.5-50.1); Hemoglobin 11.7 g/dL (12.9-16.9); Immature Granulocytes % 0.4 % (0-4); Lymphocytes # 1.3 K/mcL (0.6-4.6); Lymphocytes % 23.1 %; Mean Corpuscular HGB Conc 32.4 g/dL (31.6-35.5); Mean Corpuscular Hemoglobin 30.1 pg (28.0-33.3); Mean Corpuscular Volume 92.8 fL (83.0-100.0); Mean Platelet Volume 9.8 fL (9.4-12.4); Monocytes # 0.5 K/mcL (0.0-1.3); Monocytes % 9.1 %; Neutrophils # 3.2 K/mcL (1.6-8.9); Platelet Count 209 K/mcL (140-400); Red Blood Count 3.89 M/mcL (4.19-5.50); Red Cell Distribution Width 14.1 % (11.5-14.5); Segmented Neutrophils % 59.8 %
[2018-03-28 06:15] LABS: Prothrombin Time 11.4 Seconds (9.4-12.1)
[2018-03-28 06:26] LABS: Troponin I < 0.03 ng/mL (< 0.04)
[2018-03-28 06:29] LABS: Alanine Aminotransferase 3 Units/L (7-52); Albumin 3.7 g/dL (3.5-5.7); Albumin/Globulin Ratio 1.2 (1.1-2.2); Alkaline Phosphatase 77 Units/L (34-104); Aspartate Amino Transferase 12 Units/L (13-39); BUN/Creatinine Ratio 22 (6-26); Bilirubin,Total 0.4 mg/dL (0.3-1.0); Blood Urea Nitrogen 21 mg/dL (8-23); Carbon Dioxide 27 mEq/L (23-29); Chloride 104 mEq/L (98-107); Creatine Kinase 35 Units/L (30-223); Globulin 3.2 g/dL (2.4-3.5); Glucose 110 mg/dL (70-105); Magnesium 2.2 mg/dL (1.6-2.6); Osmolality,Calculated 288 (280-300); Potassium 3.6 mEq/L (3.5-5.1); Sodium 137 mEq/L (136-145); Total Protein 6.9 g/dL (6.4-8.9); eGFR For African Americans > 60 (> 60); eGFR For Non-African Americans > 60 (> 60)
[2018-03-28] MEDS ORDERED: Nitroglycerin 0.4 MG TAB.SUBL SL PRN ×2 (06:54→11:21)
[2018-03-28] MEDS ORDERED: Nitroglycerin 0.4 MG TAB.SUBL SL ONE ×2 (07:01→11:21)
[2018-03-28 07:18] LABS: Bilirubin,Urine Negative (Negative); Blood,Urine Negative (Negative); Clarity,Urine Clear (Clear); Color,Urine Yellow (Yellow); Glucose,Urine (UA) Normal (Normal); Ketones,Urine Negative (Negative); Leukocyte Esterase,Urine Negative (Negative); Nitrite,Urine Negative (Negative); Protein,Urine Trace mg/dL (Neg-Trace); Urobilinogen,Urine Normal (Normal)
[2018-03-28] MEDS ORDERED: Naloxone 0.4 MG/ML INJ IVP PRN (11:21)
[2018-03-28] MEDS ORDERED: Ascorbic Acid 500 MG TABLET PO SCH (11:21)
[2018-03-28] MEDS: Aspirin Enteric Coated 81 MG Tablet PO SCH (13:10)
[2018-03-28] MEDS: Finasteride 5 MG TABLET PO SCH (13:10)
[2018-03-28] MEDS: Carbidopa/Levodopa ER 50/200 TABLET PO SCH ×2 (13:14→20:10)
--- NOTE | 2018-03-28 16:51 | Internal Med History&Physical ---
Date of Encounter: 03/28/18 Time of Encounter: 15:40 Assessment and Plan (1) Anemia Current visit: No Status: Acute Improved since 02/20/2018 hemoglobin of 9.4. Remain off antiplatelet and anticoagulant medications at this time. Qualifiers: Anemia type: other cause Other causes of anemia: acute posthemorrhagic Qualified Code(s): D62 - Acute posthemorrhagic anemia (2) Weakness Current visit: Yes Status: Acute PT and OT evaluations were ordered. (3) Orthostatic hypotension Current visit: Yes Status: Chronic Continue Florinef. (4) Parkinson disease Current visit: No Status: Chronic Continue Mirapex and Sinemet (5) PAF (paroxysmal atrial fibrillation) Current visit: No Status: Acute Remain off and anticoagulant/antiplatelet medication at this time. Internal Medicine - H&P: HPI Chief complaint: Weakness Admitted From: Emergency Dept Plans for Post Hospital Care: Home History of present illness: Mr. Cloud is a 87 year old male who was brought to emergency room after his found him standing in the bathroom holding to a towel rack approximately 0350 today. Patient and were fearful he might fall if he stopped holding onto the towel rack and tried to walk. After several minutes she was able to convince him to sit on a wheeled walker she had brought from the bedroom. He appeared to have altered level of consciousness with decreased interaction with his . He was brought to emergency room for evaluation. Lab work and CT showed no obvious abnormality but it was felt best to admit him for observation. He states he feels near his baseline now. He denies pain or dyspnea. 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 He had syncope/collapse at a local SNF after that [facility] stay while participating in therapy [place] He was started on Florinef during November 2017 [facility] hospitalization for likely autonomic dysfunction with postural hypotension. He has paroxysmal atrial fibrillation but was taken off antiplatelet and anticoagulant medications a few weeks ago following GI bleed with hospitalization at [facility]. He has known ASHD with a single stent placed approximately 2001. He denies [place], DVT or pulmonary embolus. Past Med Surg Social Fam HX - Past Medical History Medical history: atrial fibrillation, coronary artery disease, GERD, hyperlipidemia, thyroid disease, TIA, other Additional medical history: parkinson's Psychiatric history: no psych history - Past Surgical History Surgical History: angioplasty/stent, pacemaker/AICD, vasectomy Additional surgical history: HEAD INJURY "METAL IN HEAD" LEFT EYE LOSS - ARTIFICIAL EYE. Pacemaker - Social History Smoking Status: Never smoker Smokeless Tobacco Status: No Alcohol use: none Drug use: none Internal Medicine - H&P: Meds Aspirin [Lo-Dose Aspirin EC] 81 mg PO DAILY 09/14/17 [History] Carbidopa/Levodopa ER 50/200 [Sinemet ER 50-200 Tab] 1 tab PO BID 09/14/17 [ History] Fludrocortisone Acetate [Florinef] 0.1 mg PO DAILY tablet 11/30/17 [Rx] Ferrous Sulfate 325 mg PO BID 12/25/17 [History] Ascorbic Acid [Vitamin C] 500 mg PO DAILY 01/20/18 [History] Finasteride [Proscar] 5 mg PO DAILY 01/20/18 [History] Levothyroxine Sodium [Levoxyl] 75 mcg PO DAILY 01/21/18 [History] Pramipexole [Mirapex] 0.25 mg PO HS 01/21/18 [History] Pantoprazole Sodium 40 mg PO DAILY #30 tablet. 01/23/18 [Rx] Atorvastatin Calcium [Lipitor] 20 mg PO DAILY 02/18/18 [History] 3 Allergy/AdvReac Type Severity Reaction Status Date / Time No Known Allergies Allergy Verified 03/28/18 05:35 All Systems PM: A 10-system review of systems was performed and is negative for pertinent findings except as documented above in the HPI. Review of systems: Review of systems from his December 2017 [facility] hospitalization were reviewed and revised as below. Gen.: His weight is increased from 78.557 kg on 11/30/2017 to 99.79 kg on admission now. Cardiovascular: As per history of present illness Respiratory: He is a lifelong nonsmoker and has no known chronic lung disease GI: Denies disorders of his liver gallbladder or exocrine pancreas : He has BPH. He denies other kidney or bladder disorders except for hematuria earlier this year. He has not had a UTI in many years. Neurologic: He has known past CVAs with left occipital infarct. He had a TIA August 2017 with speech disturbance which resolved. He was diagnosed with Parkinson's disease approximately 2012. 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 Endocrine: He denies diabetes but has hypothyroidism and hyperlipidemia Hematology/oncology: He has chronic anemia with anemia testing done 11/18/2017 showing iron 50, transferrin saturation 17, transferrin 205, ferritin 66, B12 713, and folate 14.8. He was started on ferrous sulfate with vitamin C. He denies internal malignancies other blood disorders. Psychiatric: He has expressed feelings of depression but stated he did not want medication for this. He denies other mental health diagnoses. Musko skeletal: He has no significant arthritis gout or other bone joint or muscle disorders. - Constitutional Vitals: Temp Pulse Resp BP Pulse Ox 97.3 F L 61 14 115/63 98 03/28/18 14:29 03/28/18 14:29 03/28/18 14:29 03/28/18 14:29 03/28/18 14:29 Exam: Gen.: He is well-developed well-nourished male sitting in a chair at bedside who appears in no acute distress HEENT: Head is atraumatic and normocephalic. Eyes: EOMI of right eye. Left eye is prosthetic. There is no scleral icterus. Mouth: Mucosa is moist. Neck: Supple and nontender. There is no thyromegaly or adenopathy noted. Heart: Regular without murmurs gallops or ectopics Lungs: No wheezes or crackles are heard. Abdomen: Soft and nontender. Exam is limited because he is in the seated position. Extremities: There is 1+ edema bilaterally of the dorsum of the feet and lower legs. Dorsalis pedis and posttibial pulses are not palpable. 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 Neurologic: Mental status: He is talkative and a fair historian. His supplies most of the history. Cranial nerves: Smile is symmetric. Forehead wrinkles bilaterally. Tongue protrudes midline. EOMI. Motor: There is no pronator drift. Cerebellar: Finger to nose is intact bilaterally. Skin: Warm and dry Internal Med - H&P Results - Labs CBC & Chem 7: 03/28/18 05:55 03/28/18 05:55
[2018-03-28] MEDS: Acetaminophen 325 MG TABLET PO PRN (17:24)
[2018-03-29] MEDS ORDERED: *HR* LORazepam 2 MG/ML VIAL ONE (01:33)
[2018-03-29] MEDS: *HR* LORazepam 2 MG/ML VIAL IVP PRN ×2 (01:44→05:44)
[2018-03-29] MEDS: Finasteride 5 MG TABLET PO SCH ×2 (08:09→09:41)
[2018-03-29] MEDS: Carbidopa/Levodopa ER 50/200 TABLET PO SCH ×3 (08:09→20:56)
[2018-03-29] MEDS: Ascorbic Acid 500 MG TABLET PO SCH ×2 (08:10→09:40)
[2018-03-29] MEDS: Aspirin Enteric Coated 81 MG Tablet PO SCH ×2 (08:10→09:40)
--- NOTE | 2018-03-29 09:47 | Discharge Summary ---
Date of Encounter: 03/29/18 Time of Encounter: 09:35 - Discharge Diagnosis (1) Anemia Priority: Primary Status: Acute Qualifiers: Anemia type: other cause Other causes of anemia: acute posthemorrhagic Qualified Code(s): D62 - Acute posthemorrhagic anemia (2) Weakness Priority: Secondary Status: Acute (3) Orthostatic hypotension Priority: Secondary Status: Chronic (4) Parkinson disease Priority: Secondary Status: Chronic (5) PAF (paroxysmal atrial fibrillation) Priority: Secondary Status: Acute Hospital course: Mr. Cloud is a 87 year old male who was brought to emergency room after his found him standing in the bathroom holding to a towel rack approximately 0350 today. Patient and were fearful he might fall if he stopped holding onto the towel rack and tried to walk. After several minutes she was able to convince him to sit on a wheeled walker she had brought from the bedroom. He appeared to have altered level of consciousness with decreased interaction with his . He was brought to emergency room for evaluation. Lab work and CT showed no obvious abnormality but it was felt best to admit him for observation. Initial orders were written by the emergency room physician. I saw him on March 28 and performed a history and physical. By the time I saw him he appeared to be back to his baseline. He was sitting in a chair at bedside and appeared in no acute distress. He was observed overnight without complications. On March 29 I felt he was stable for discharge home. He will follow with his PCP Dr. Go within 1 week. No medication changes were made. - Time Spent with Patient Total time spent providing and/or coordinating discharge services: - Discharge Medications Home Medications: Aspirin [Lo-Dose Aspirin EC] 81 mg PO DAILY 09/14/17 [History] Carbidopa/Levodopa ER 50/200 [Sinemet ER 50-200 Tab] 1 tab PO BID 09/14/17 [ History] Fludrocortisone Acetate [Florinef] 0.1 mg PO DAILY tablet 11/30/17 [Rx] Ferrous Sulfate 325 mg PO BID 12/25/17 [History] Ascorbic Acid [Vitamin C] 500 mg PO DAILY 01/20/18 [History] Finasteride [Proscar] 5 mg PO DAILY 01/20/18 [History] Levothyroxine Sodium [Levoxyl] 75 mcg PO DAILY 01/21/18 [History] Pramipexole [Mirapex] 0.25 mg PO HS 01/21/18 [History] Pantoprazole Sodium 40 mg PO DAILY #30 tablet. 01/23/18 [Rx] Atorvastatin Calcium [Lipitor] 20 mg PO DAILY 02/18/18 [History] Allergies/Adverse Reactions: 3 Allergy/AdvReac Type Severity Reaction Status Date / Time No Known Allergies Allergy Verified 03/28/18 05:35 Date of admission: 03/28/18 08:02 Primary care physician: Tate Go DO Consults: 03/28/18 09:53 Consult to Occupational Therapy [CONS] Routine Comment: Evaluate, develop and implement POC Reason for Consult: Weakness Does patient have active BEDREST order?: No Is patient medically & hemodynamically stable?: Yes Patient assessed for mobility or mobilized this visit?: Yes Consult to Physical Therapy [CONS] Routine Comment: Evaluate, develop and implement POC Reason for Consult: Weakness Does patient have active BEDREST order?: No Is patient medically & hemodynamically stable?: Yes Patient assessed for mobility or mobilized this visit?: Yes - Constitutional Vitals: Temp Pulse Resp BP Pulse Ox 98.0 F 59 18 174/68 95 03/29/18 07:21 03/29/18 07:21 03/29/18 07:21 03/29/18 07:21 03/29/18 07:21 - Patient Status Disposition: Home, Self-Care Condition: Good - Discharge Instructions Follow Up With: Tate Go DO [Primary Care Provider] - 1 week - Diet and Activity Activity: resume usual activities as tolerated Diet: advance to your usual diet
--- NOTE | 2018-03-29 10:30 | Physician Discharge Referral ---
Home Health/Hosp Referral Info Transfer to: Home Health Attending Provider: Joel Provider in Charge Post Discharge: PCP Davey) - Diagnosis (1) Anemia Priority: Primary Status: Acute (2) Weakness Priority: Secondary Status: Acute (3) Orthostatic hypotension Priority: Secondary Status: Chronic (4) Parkinson disease Priority: Secondary Status: Chronic (5) PAF (paroxysmal atrial fibrillation) Priority: Secondary Status: Acute - Respiratory Orders Smoking Cessation: Smoking cessation has been advised. For more information, call the [place] Tobacco Quit Line at 7-025-NCBR-NOW. - Diet/Nutrition Diet/Nutrition Orders: Regular - Activity Activity Orders: Walker - Services Needed Following services are medically necessary services: Nursing, Home Health Aide, Physical Therapy, Occupational Therapy - Transfer Medications Home Medications: Aspirin [Lo-Dose Aspirin EC] 81 mg PO DAILY 09/14/17 [History] Carbidopa/Levodopa ER 50/200 [Sinemet ER 50-200 Tab] 1 tab PO BID 09/14/17 [ History] Fludrocortisone Acetate [Florinef] 0.1 mg PO DAILY tablet 11/30/17 [Rx] Ferrous Sulfate 325 mg PO BID 12/25/17 [History] Ascorbic Acid [Vitamin C] 500 mg PO DAILY 01/20/18 [History] Finasteride [Proscar] 5 mg PO DAILY 01/20/18 [History] Levothyroxine Sodium [Levoxyl] 75 mcg PO DAILY 01/21/18 [History] Pramipexole [Mirapex] 0.25 mg PO HS 01/21/18 [History] Pantoprazole Sodium 40 mg PO DAILY #30 tablet. 01/23/18 [Rx] Atorvastatin Calcium [Lipitor] 20 mg PO DAILY 02/18/18 [History] Allergies/Adverse Reactions: 3 Allergy/AdvReac Type Severity Reaction Status Date / Time No Known Allergies Allergy Verified 03/28/18 05:35 Certification: Further, I certify that my clinical findings support that this patient is homebound (i.e. absences from home require considerable and taxing effort and are for medical reasons or anabaptism services or infrequently or short duration when for other reasons) because: Homebound Reason: Leaving home requires considerable and taxing effort due to condition (Parkinson's disease, difficulty ambulating) Attestation: My signature below is to certify that this patient is under my care and that I, or nurse practitioner, or a physician's social service assistant working with me, has a face-to -face encounter with this patient.
--- NOTE | 2018-03-30 06:35 | Electrocardiograph Report ---
[address] [address] Test Date: 2018-03-28 Pat Name: Derrick Cloud Department: [id number] Room: [facility] [place] Gender: M Insurance Verification Rep: NOHELIA : [id number] Requested By: Joie Mathis Order Number: [id number] Reading MD: Hunter Monahan Measurements Intervals [place] Rate: 59 P: 208 OR: 208 QRS: -2 QRSD: 94 T: 18 QT: 422 QTc: 422 Interpretive Statements ELECTRONIC ATRIAL PACEMAKER MINIMAL VOLTAGE CRITERIA FOR LVH, CONSIDER NORMAL VARIANT Electronically Signed On 03-30-2018 6:33:21 EDT by Hunter Monahan
[2018-03-30] MEDS: Ascorbic Acid 500 MG TABLET PO SCH (07:49)
[2018-03-30] MEDS: Finasteride 5 MG TABLET PO SCH (07:50)
[2018-03-30] MEDS: Aspirin Enteric Coated 81 MG Tablet PO SCH (07:50)
[2018-03-30] MEDS: Carbidopa/Levodopa ER 50/200 TABLET PO SCH ×2 (07:50→20:50)
--- NOTE | 2018-03-30 10:14 | Internal Med Progress Note ---
Date of Encounter: 03/30/18 Time of Encounter: 09:55 - Assessment and plan (1) TIA (transient ischemic attack) Current Visit: No Status: Acute Assessment and plan: He has history of TIAs with similar presentation. He was restarted on aspirin at admission 2 days ago after being off antiplatelet and anticoagulant medications for several weeks due to GI bleed with hospitalization at [facility] January 2018. Significant discussion with his we agreed he would restart daily Plavix and use aspirin every other day. He will remain off anticoagulant at this time. Carotid Doppler August 2017 showed bilateral proximal ICA with nonstenotic plaque. Qualifiers: Transient cerebral ischemia type: unspecified Qualified Code(s): G45.9 - Transient cerebral ischemic attack, unspecified (2) Anemia Current Visit: No Status: Acute Assessment and plan: March 30. Monitor CBC. Qualifiers: Anemia type: other cause Other causes of anemia: acute posthemorrhagic Qualified Code(s): D62 - Acute posthemorrhagic anemia (3) Weakness Current Visit: Yes Status: Acute Assessment and plan: March 30. Order PT and OT evaluation. (4) Orthostatic hypotension Current Visit: Yes Status: Chronic Assessment and plan: March 30. Continue Florinef (5) Parkinson disease Current Visit: No Status: Chronic Assessment and plan: March 30. Continue Mirapex and Sinemet (6) PAF (paroxysmal atrial fibrillation) Current Visit: No Status: Acute Assessment and plan: March 30. After discussion with it was agreed he will remain off anticoagulant for now but will start antiplatelet agents as per above. - Subjective Interval history: March 30. Discharge was canceled yesterday after orders written when patient became unresponsive sitting in a chair at bedside. Rapid response was called and he regained consciousness slowly. I did not witness that event. I was called to his room this morning when he had another episode of unresponsiveness. - Constitutional Vitals: Temp Pulse Resp BP Pulse Ox 97.0 F L 60 16 157/80 98 03/30/18 07:49 03/30/18 09:00 03/30/18 09:00 03/30/18 09:00 03/30/18 07:49 Exam: He is lying in bed appearing in no acute distress. His eyes are open but he does not respond and meaningful way to voice or light touch. He has equal arm tone on passive range of motion. No seizure activity is noted. I reviewed his medications and lab results. Internal Medicine: Result - Labs CBC & Chem 7: 03/28/18 05:55 03/28/18 05:55 - ABG Interpretation ABG results: PT/INR, D-dimer PT 11.4 Seconds (9.4-12.1) 03/28/18 05:55 Consult Discharge Plan - Plan Instructions: Atrial Fibrillation (DC), Syncope (DC), Hypothyroidism (DC), Chronic Hypertension (DC), Anemia (GEN) Referrals: Tate Go DO [Primary Care Provider] - 1 week
[2018-03-30] MEDS: Acetaminophen 325 MG TABLET PO PRN ×2 (11:19→20:50)
[2018-03-31] MEDS: Finasteride 5 MG TABLET PO SCH (09:01)
[2018-03-31] MEDS: Ascorbic Acid 500 MG TABLET PO SCH (09:01)
--- NOTE | 2018-03-31 10:09 | Discharge Summary ---
Date of Encounter: 03/31/18 Time of Encounter: 10:00 - Discharge Diagnosis (1) TIA (transient ischemic attack) Priority: Primary Status: Acute Qualifiers: Transient cerebral ischemia type: unspecified Qualified Code(s): G45.9 - Transient cerebral ischemic attack, unspecified (2) Anemia Priority: Secondary Status: Acute Qualifiers: Anemia type: other cause Other causes of anemia: acute posthemorrhagic Qualified Code(s): D62 - Acute posthemorrhagic anemia (3) Weakness Priority: Secondary Status: Acute (4) Orthostatic hypotension Priority: Secondary Status: Chronic (5) Parkinson disease Priority: Secondary Status: Chronic (6) PAF (paroxysmal atrial fibrillation) Priority: Secondary Status: Chronic Hospital course: Mr. Cloud is a 87 year old male who was brought to emergency room after his found him standing in the bathroom holding to a towel rack approximately 0350 today. Patient and were fearful he might fall if he stopped holding onto the towel rack and tried to walk. After several minutes she was able to convince him to sit on a wheeled walker she had brought from the bedroom. He appeared to have altered level of consciousness with decreased interaction with his . He was brought to emergency room for evaluation. Lab work and CT showed no obvious abnormality but it was felt best to admit him for observation. Initial orders were written by the emergency room physician. I saw him on March 28 and performed a history and physical. By the time I saw him he appeared to be back to his baseline. He was sitting in a chair at bedside and appeared in no acute distress. He was observed overnight without complications. On March 29 I felt he was stable for discharge home. He will follow with his PCP Dr. Go within 1 week. No medication changes were made. Addendum: Patient had an episode of altered mental status shortly after the discharge summary was dictated. The discharge was canceled. I felt it was likely a TIA. I had discussion with patient's about medication options. We agreed he would start Plavix daily and use aspirin 81 mg every other day. He will remain off anticoagulation at this time due to history of recurrent GI bleeding. His did not feel she could care for him at home. Contact was made with Ruth Sellers and arrangements were complete on March 31 for him to be discharged to the [facility] for ongoing care needs. He will follow with Dr. Go there. - Time Spent with Patient Total time spent providing and/or coordinating discharge services: - Discharge Medications Prescriptions: Clopidogrel [Plavix] 75 mg PO DAILY #30 tablet Home Medications: Carbidopa/Levodopa ER 50/200 [Sinemet ER 50-200 Tab] 1 tab PO BID 09/14/17 [ History] Fludrocortisone Acetate [Florinef] 0.1 mg PO DAILY tablet 11/30/17 [Rx] Ferrous Sulfate 325 mg PO BID 12/25/17 [History] Ascorbic Acid [Vitamin C] 500 mg PO DAILY 01/20/18 [History] Finasteride [Proscar] 5 mg PO DAILY 01/20/18 [History] Levothyroxine Sodium [Levoxyl] 75 mcg PO DAILY 01/21/18 [History] Pramipexole [Mirapex] 0.25 mg PO HS 01/21/18 [History] Pantoprazole Sodium 40 mg PO DAILY #30 tablet. 01/23/18 [Rx] Atorvastatin Calcium [Lipitor] 20 mg PO DAILY 02/18/18 [History] Aspirin Enteric Coated [Aspirin EC] 81 mg PO Q48H tablet. 03/31/18 [Rx] Clopidogrel [Plavix] 75 mg PO DAILY #30 tablet 03/31/18 [Rx] Allergies/Adverse Reactions: 3 Allergy/AdvReac Type Severity Reaction Status Date / Time No Known Allergies Allergy Verified 03/28/18 05:35 Date of admission: 03/28/18 08:02 Primary care physician: Tate Go, DO Consults: 03/28/18 09:53 Consult to Occupational Therapy [CONS] Routine Comment: Evaluate, develop and implement POC Reason for Consult: Weakness Does patient have active BEDREST order?: No Is patient medically & hemodynamically stable?: Yes Patient assessed for mobility or mobilized this visit?: Yes Consult to Physical Therapy [CONS] Routine Comment: Evaluate, develop and implement POC Reason for Consult: Weakness Does patient have active BEDREST order?: No Is patient medically & hemodynamically stable?: Yes Patient assessed for mobility or mobilized this visit?: Yes 03/30/18 10:19 Consult to Occupational Therapy [CONS] Routine Comment: Evaluate, develop and implement POC Reason for Consult: Weakness Does patient have active BEDREST order?: No Is patient medically & hemodynamically stable?: Yes Patient assessed for mobility or mobilized this visit?: Yes Consult to Physical Therapy [CONS] Routine Comment: Evaluate, develop and implement POC Reason for Consult: Weakness Does patient have active BEDREST order?: No Is patient medically & hemodynamically stable?: Yes Patient assessed for mobility or mobilized this visit?: Yes - Constitutional Vitals: Temp Pulse Resp BP Pulse Ox 97.9 F 65 16 161/89 94 03/31/18 07:58 03/31/18 07:58 03/31/18 07:58 03/31/18 07:58 03/31/18 07:58 - Patient Status Disposition: Home Health Service Condition: Good - Discharge Instructions Instructions: Atrial Fibrillation (DC), Syncope (DC), Hypothyroidism (DC), Chronic Hypertension (DC), Anemia (GEN) Follow Up With: Tate Go DO [Primary Care Provider] - 1 week - Diet and Activity Activity: resume usual activities as tolerated Diet: regular diet
[2018-03-31] MEDS: Carbidopa/Levodopa ER 50/200 TABLET PO SCH (10:11)
--- NOTE | 2018-03-31 10:17 | Physician Discharge Referral ---
Home Health/Hosp Referral Info Transfer to: Home Health Attending Provider: Joel Provider in Charge Post Discharge: PCP Davey) - Diagnosis (1) TIA (transient ischemic attack) Priority: Primary Status: Acute (2) Anemia Priority: Secondary Status: Acute (3) Weakness Priority: Secondary Status: Acute (4) Orthostatic hypotension Priority: Secondary Status: Chronic (5) Parkinson disease Priority: Secondary Status: Chronic (6) PAF (paroxysmal atrial fibrillation) Priority: Secondary Status: Chronic - Respiratory Orders Smoking Cessation: Smoking cessation has been advised. For more information, call the [place] Tobacco Quit Line at 6-017-JBAK-NOW. - Diet/Nutrition Diet/Nutrition Orders: Regular - Activity Activity Orders: Walker - Services Needed Following services are medically necessary services: Nursing, Home Health Aide, Physical Therapy, Occupational Therapy - Transfer Medications Prescriptions: Clopidogrel [Plavix] 75 mg PO DAILY #30 tablet Home Medications: Carbidopa/Levodopa ER 50/200 [Sinemet ER 50-200 Tab] 1 tab PO BID 09/14/17 [ History] Fludrocortisone Acetate [Florinef] 0.1 mg PO DAILY tablet 11/30/17 [Rx] Ferrous Sulfate 325 mg PO BID 12/25/17 [History] Ascorbic Acid [Vitamin C] 500 mg PO DAILY 01/20/18 [History] Finasteride [Proscar] 5 mg PO DAILY 01/20/18 [History] Levothyroxine Sodium [Levoxyl] 75 mcg PO DAILY 01/21/18 [History] Pramipexole [Mirapex] 0.25 mg PO HS 01/21/18 [History] Pantoprazole Sodium 40 mg PO DAILY #30 tablet. 01/23/18 [Rx] Atorvastatin Calcium [Lipitor] 20 mg PO DAILY 02/18/18 [History] Aspirin Enteric Coated [Aspirin EC] 81 mg PO Q48H tablet. 03/31/18 [Rx] Clopidogrel [Plavix] 75 mg PO DAILY #30 tablet 03/31/18 [Rx] Allergies/Adverse Reactions: 3 Allergy/AdvReac Type Severity Reaction Status Date / Time No Known Allergies Allergy Verified 03/28/18 05:35 Certification: Further, I certify that my clinical findings support that this patient is homebound (i.e. absences from home require considerable and taxing effort and are for medical reasons or protestant services or infrequently or short duration when for other reasons) because: Homebound Reason: Leaving home requires considerable and taxing effort due to condition (Impaired walking ability, Parkinson's disease) Attestation: My signature below is to certify that this patient is under my care and that I, or nurse practitioner, or a physician's front office assistant working with me, has a face-to -face encounter with this patient.
[2018-03-31 11:07] VITALS: BP 152/80
--- NOTE | 2018-03-31 17:50 | Electrocardiograph Report ---
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
[2018-04-01] MEDS ORDERED: Aspirin Enteric Coated 81 MG Tablet PO SCH (09:00)
== END 2018-03-31 11:40 | disposition home health service (06) ==
LOC: EMEROOPIK 05:15 → INPPIK 05:15
PROVIDERS: ADMIT Internal Medicine; ATTEND Internal Medicine